=== PATIENT | male | born 1935 | race Caucasian/White ===

== ENCOUNTER 2022-11-11 12:54 | Inpatient (IN) ==
--- NOTE | 2022-11-11 15:08 | Ultrasound Report ---
History: Right upper quadrant pain, abnormally thickened and edematous gallbladder wall seen on preceding CT scan FINDINGS: The liver is normal in size and homogeneous. Doppler shows normal blood flow in the hepatic and portal veins. The gallbladder wall is irregular in contour and abnormally thickened. There is edema in the wall. The wall measures up to 8.7 mm. There is a moderate amount sludge layering posteriorly within the lumen and there may be a few small noncalcified stones. No surrounding free fluid is present. The patient was nontender while scanning over the gallbladder. The common bile duct was largely obscured but the visualized segments are normal in caliber measuring 3 mm. The cystic duct is dilated measures 9 mm. These findings correlate well with the CT scan done earlier on the same date. Visualized portions of the pancreas are normal without evidence of inflammation. IMPRESSION: Abnormally thickened gallbladder wall with sludge and possible stones within the lumen. Although the patient was not particularly tender, this is most likely due to cholecystitis.. Interpreted and Authenticated by: Lj Zaidi 11/11/22
[2022-11-11 15:13] LABS: Eosinophils % (Auto) 2.9 % (0.0-7.0); Hematocrit 40.4 % (40.1-51.0); Hemoglobin 13.4 g/dL (13.7-17.5); Lymphocytes # (Auto) 1.23 K/mcL (1.50-4.80); Lymphocytes % (Auto) 11.8 % (15.5-49.0); Mean Cell Volume 89.6 fL (80.0-100.0); Mean Corpuscular HGB Conc 33.2 g/dL (31.0-36.0); Monocytes # (Auto) 1.15 K/mcL (0.10-0.90); Neutrophils % (Auto) 68.1 % (38.0-78.0); Platelet Count 325 K/mcL (140-440); RBC 4.51 M/mcL (4.63-6.08); WBC 10.4 K/mcL (4.5-11.0)
[2022-11-11 15:33] LABS: ALT/SGPT 33 U/L (<40); AST/SGOT 26 U/L (<40); Albumin/Globulin Ratio 0.8 (1.0-2.3); Alkaline Phosphatase 278 U/L (39-117); Bilirubin,Total 0.2 mg/dL (0.1-1.0); Blood Urea Nitrogen 37 mg/dL (8-23); Carbon Dioxide 21 mmol/L (22-30); Chloride 99 mmol/L (96-108); Globulin 3.6 gm/dL (2.2-3.7); Glomerular Filtration Rate 49; Glucose 164 mg/dL (70-105)
--- NOTE | 2022-11-11 15:49 | Emergency Department Note ---
Abdominal Pain HPI General Chief Complaint: Abdominal Pain Stated Complaint: gallbladder issue Time Seen by Provider: 11/11/22 13:13 Source: patient Mode of arrival: ambulatory Limitations: no limitations History of Present Illness HPI Narrative: 87-year-old male with history of CKD, BPH, COPD, T2DM, hypertension, hyperlipidemia, hypothyroidism, history of lung cancer status post partial lobectomy presents to the ER from his primary care provider's office after a CT scan of his abdomen pelvis showed acute cholecystitis. Patient was seen by me last week for dizziness and ruled out for neurological causes. His daughter is with him today and states that on Friday he started having some chills and sweats, and seemed to be getting weaker. He denies nausea or vomiting, melena or hematochezia. He was seen by his PCP on Friday who noted some mild right upper quadrant pain at which point a CT scan was ordered as an outpatient today. Liver enzymes on 11/03 are within normal limits. No previous abdominal surgeries. Related Data Home Medications Medication Instructions Recorded Confirmed aspirin 81 mg tablet,delayed 81 mg PO QDAY 03/07/15 11/07/22 release cyanocobalamin (vitamin B-12) 1,000 mcg PO QDAY 01/05/20 11/07/22 1,000 mcg tablet metoprolol succinate 50 mg 50 mg PO QDAY 10/24/21 11/07/22 tablet,extended release 24 hr tiotropium bromide 18 mcg capsule inhalation 10/24/21 11/07/22 with inhalation device (Spiriva with HandiHaler) ferrous sulfate 325 mg (65 mg 325 mg PO BID 11/02/21 11/07/22 iron) tablet (Feosol) amlodipine 10 mg tablet 5 mg PO DAILY 07/03/22 11/07/22 trospium 20 mg tablet 20 mg PO BID 07/03/22 11/07/22 albuterol sulfate 90 mcg/actuation 3 puff inhalation QID PRN Dyspnea 11/03/22 11/07/22 aerosol inhaler cholecalciferol (vitamin D3) 100 2,000 unit PO QDAY 11/03/22 11/07/22 mcg (4,000 unit) capsule tolterodine 4 mg capsule,extended 4 mg PO QDAY 11/03/22 11/07/22 release 24 hr triamcinolone acetonide 0.5 % 1 dose topical BID 11/03/22 11/07/22 topical cream Previous Rx's Medication Instructions Recorded nitroglycerin 0.4 mg sublingual 0.4 mg sublingual Q5-15M PRN chest 04/08/19 tablet (Nitrostat) pain #10 tabs blood-glucose meter (Blood Glucose #1 ea 10/21/19 Monitoring kit) tiotropium bromide 18 mcg capsule See Dose Instructions inhalation 10/28/19 with inhalation device QDAY #90 puffs lancets (Accu-Chek Softclix #150 ea 12/07/19 Lancets) blood sugar diagnostic (Accu-Chek #90 ea 12/08/19 Brunilda Plus test strips) diaper,brief,adult,disposable #76 ea 05/25/20 (Depend Underwear For Men Small-Medium) atorvastatin 10 mg tablet (Lipitor) 10 mg PO QHS #90 tabs 06/09/20 glimepiride 2 mg tablet 2 mg PO QDAY #90 tabs 08/01/20 losartan 50 mg tablet (Cozaar) 50 mg PO BID #180 tabs 08/01/20 tamsulosin 0.4 mg capsule 0.4 mg PO QDAY #30 caps 11/20/20 alogliptin 12.5 mg tablet 12.5 mg PO QAM #90 tabs 11/29/20 gemfibrozil 600 mg tablet (Lopid) 600 mg PO BID #180 tabs 11/29/20 empagliflozin 10 mg tablet 10 mg PO QDAY #90 tabs 05/04/21 (Jardiance) loperamide 2 mg capsule 2 mg PO Q4H PRN loose stool #60 05/17/22 caps levothyroxine 175 mcg tablet 175 mcg PO QDAY #90 tabs 07/26/22 metformin 850 mg tablet 850 mg PO TID #270 tabs 09/25/22 Allergies Allergy/AdvReac Type Severity Reaction Status Date / Time No Known Drug Allergies Allergy Verified 11/11/22 13:03 Review of Systems ROS ROS Narrative: Narrative: All systems ED: reviewed and negative except as stated. [facility] Narrative Patient History Narrative: Narrative: Medical/Surgical/Family History All Active Problems (Updated 11/11/22 @ 16:38 by Varsha De Leon PA-C) Acute cholecystitis (Acute) Acute cholecystitis (Acute) Constipation (Acute) Abdominal pain (Acute) Atypical chest pain (Acute) Pulmonary nodule (Acute) Weakness (Acute) Dizziness (Acute) Fall (Acute) Small intestinal bacterial overgrowth (SIBO) (Acute) Diarrhea (Acute) Dehydration (Acute) Acute renal insufficiency (Acute) Chronic diarrhea (Acute) Poor balance (Acute) Laceration of right hand (Acute) Laceration of hand, left (Acute) Squamous cell carcinoma of left lung (Acute) Lung crackles (Acute) Annual physical exam (Acute) Prostate nodule (Acute) Medicare annual wellness visit, subsequent (Acute) Bladder cancer (Acute) OAB (overactive bladder) (Acute) BPH w urinary obs/LUTS (Acute) BPPV (benign paroxysmal positional vertigo) (Acute) Cognitive decline (Acute) Contact dermatitis (Acute) Vitamin D deficiency (Chronic) B12 deficiency (Chronic) Hypothyroidism (Chronic) Laceration of thumb (Chronic) COPD exacerbation (Acute) History of skin cancer (Acute) History of umbilical hernia repair (Acute) History of colonoscopy (Acute 06/28/16) Melanoma of skin (Acute) Psoriasis (Acute) Palpitations (Acute) Hypothyroidism, acquired (Acute) Hyperlipemia (Chronic) Gout (Acute) Diabetes mellitus, type II (Chronic) Benign neoplasm of colon (Acute) Chronic obstructive pulmonary disease (Chronic) Bladder neck obstruction (Acute) Medical History Annual physical exam Benign neoplasm of colon Bladder neck obstruction BPPV (benign paroxysmal positional vertigo) Chronic obstructive pulmonary disease Cognitive decline COPD exacerbation Diabetes mellitus, type II Gout History of skin cancer Hyperlipemia Hypothyroidism Hypothyroidism, acquired Laceration of thumb Lung crackles Medicare annual wellness visit, subsequent Melanoma of skin Palpitations Prostate nodule Psoriasis Squamous cell carcinoma of left lung Surgical History History of colonoscopy (06/28/16) 05/31/13 Tubular Adenoma History of photovaporization of prostate History of umbilical hernia repair Family History Father Asthma Malignant neoplasm of colon at 70 Osteoarthritis Sister Hyperlipidemia Mother , at 30y unknown type Malignant neoplasm Unknown Disorder of thyroid Social History Smoking Status: Former smoker Alcohol Intake Frequency: holiday/special occasion only Substance Use: does not use Exam Narrative Narrative: General: AOx3, NAD, nontoxic appearing. Pleasant and conversant. HEENT: PERRL, EOMI, normocephalic. Moist mucous membranes. Normal facies Respiratory: Lungs clear to auscultation bilaterally. No respiratory distress. Unlabored breathing. Heart: Regular rate and rhythm, no murmurs/clicks/rubs. Abdomen: Mild right upper quadrant discomfort, negative Overton's rebound tenderness, negative McBurney's rebound tenderness,, Non distended, No organomegaly. Extremities: Warm and well perfused. No edema. DP 2+ bilaterally. No venous stasis. Neuro: No focal deficits. Cranial nerves II-XII grossly normal. Skin: Warm dry, no rashes or lesions, no cyanosis. Psych: Normal mood and affect Heme/Lymph: No abnormal bruising General Limitations: no limitations Course Course Course Narrative: 87-year-old male presents for acute cholecystitis Reevaluation(s) Reevaluation #1: Obtain repeat CMP, CBC Obtain right upper quadrant ultrasound Reevaluation #2: CBC without leukocytosis or left shift. No transaminitis or elevated total bili, but alkaline phosphatase is elevated at 278 Right upper quadrant ultrasound shows abnormally thickened gallbladder wall with sludge and possible stones within the lumen. Consultations Consultation #1: Dr. Knight has been contacted, and given the patient's symptomology and mild right upper quadrant pain, he would like to admit the patient for acute cholecystitis and surgical intervention. Vital Signs Vital signs: Vital Signs Temperature 97.0 F 11/11/22 12:58 Pulse Rate 105 H 11/11/22 12:58 Respiratory Rate 18 11/11/22 12:58 Blood Pressure 126/76 11/11/22 12:58 Pulse Oximetry (%) 95 11/11/22 12:58 Oxygen Delivery Method Room Air 11/11/22 12:58 Temperature 97.0 F 11/11/22 12:58 Pulse Rate 92 H 11/11/22 14:52 Respiratory Rate 18 11/11/22 12:58 Blood Pressure 104/69 11/11/22 14:52 Pulse Oximetry (%) 91 11/11/22 14:52 Oxygen Delivery Method Room Air 11/11/22 12:58 [facility] Narrative Medical decision making narrative: Acute cholecystitis Dr. Knight, general surgery, has evaluated the patient and plans to admit for acute cholecystitis and surgical intervention. Please see his note for further details and plan of care. Patient is admitted. Lab Data 11/11/22 14:00 11/11/22 14:00 Labs: Lab Results 11/11/22 11/11/22 Range/Units 14:00 14:00 WBC 10.4 (4.5-11.0) K/mcL RBC 4.51 L (4.63-6.08) M/mcL Hgb 13.4 L (13.7-17.5) g/dL Hct 40.4 (40.1-51.0) % MCV 89.6 (80.0-100.0) fL MCH 29.7 (26.0-34.0) pg MCHC 33.2 (31.0-36.0) g/dL RDW 14.0 (11.5-14.5) % Plt Count 325 (140-440) K/mcL MPV 11.0 (8.8-12.5) fL Immature Gran % (Auto) 5.2 H (0.0-0.5) % Neut % (Auto) 68.1 (38.0-78.0) % Lymph % (Auto) 11.8 L (15.5-49.0) % [place] % (Auto) 11.0 (1.0-12.0) % Eos % (Auto) 2.9 (0.0-7.0) % Baso % (Auto) 1.0 (0.0-2.0) % Lymph # (Auto) 1.23 L (1.50-4.80) K/mcL [place] # (Auto) 1.15 H (0.10-0.90) K/mcL Eos # (Auto) 0.30 (0.00-0.70) K/mcL Baso # (Auto) 0.10 (0.00-0.30) K/mcL Immature Gran # 0.54 H (0.00-0.05) K/mcl Absolute Neutrophils 7.09 (1.80-8.00) K/mcL Sodium 133 (133-145) mmol/L Potassium 3.8 (3.3-5.1) mmol/L Chloride 99 (96-108) mmol/L Carbon Dioxide 21 L (22-30) mmol/L Anion Gap 13.0 (8.0-16.0) BUN 37 H (8-23) mg/dL Creatinine 1.3 H (0.7-1.2) mg/dL GFR Calculation 49 Glucose 164 H (70-105) mg/dL Calcium 9.0 (8.6-10.4) mg/dL Total Bilirubin 0.2 (0.1-1.0) mg/dL AST 26 (<40) U/L ALT 33 (<40) U/L Alkaline Phosphatase 278 H (39-117) U/L Total Protein 6.6 (5.9-8.4) gm/dL Albumin 3.0 L (3.2-5.2) gm/dL Globulin 3.6 (2.2-3.7) gm/dL Albumin/Globulin Ratio 0.8 L (1.0-2.3) Discharge Plan Patient/Caregiver Discharge Instructions Pt seen by WEIGHTS AND MEASURES INSPECTOR/PA only: Yes Clinical Impression: Acute cholecystitis Patient Disposition: Xfer As Inpt ([facility]) Follow up with: Frank Graham MD [Primary Care Provider] - Prescriptions: No Action nitroglycerin [Nitrostat] 0.4 mg tablet, sublingual 0.4 mg SUBLINGUAL Q5-15M PRN (Reason: chest pain) Qty: 10 0RF Rx Instructions: until response; do not exceed 3 doses per episode (DME) lancets [Accu-Chek Softclix Lancets] Misc See Rx Instructions .ROUTE .MEDSUPPLY Qty: 150 5RF Rx Instructions: As directed (DME) blood sugar diagnostic [Accu-Chek Brunilda Plus test strp] Strip See Rx Instructions .ROUTE .MEDSUPPLY Qty: 90 5RF Rx Instructions: check blood sugar once daily (DME) Depend Underwear For Men - Misc See Rx Instructions .ROUTE .MEDSUPPLY Qty: 76 5RF Rx Instructions: As directed atorvastatin 10 mg tablet 10 mg tablet 10 mg PO QHS Qty: 90 1RF glimepiride 2 mg tablet 2 mg PO QDAY Qty: 90 1RF losartan [Cozaar] 50 mg tablet 50 mg PO BID Qty: 180 1RF tamsulosin 0.4 mg capsule 0.4 mg PO QDAY Qty: 30 6RF gemfibrozil [Lopid] 600 mg tablet 600 mg PO BID Qty: 180 1RF alogliptin 12.5 mg tablet 12.5 mg PO QAM Qty: 90 1RF Jardiance 10 mg tablet 10 mg PO QDAY Qty: 90 1RF levothyroxine 175 mcg tablet 175 mcg PO QDAY Qty: 90 1RF metformin 850 mg tablet 850 mg PO TID Qty: 270 3RF Patient Comments: for 90 days Rx Instructions: Going back to TID dosing aspirin 81 mg tablet,delayed release (DR/EC) 81 mg PO QDAY cyanocobalamin (vitamin B-12) 1,000 mcg tablet 1,000 mcg PO QDAY (DME) blood-glucose meter [Blood Glucose Monitoring] Kit See Rx Instructions .ROUTE .MEDSUPPLY Qty: 1 0RF Rx Instructions: Use to test BG QD - BID tiotropium bromide 18 mcg capsule, w/inhalation device See Dose Instructions INHALATION QDAY Qty: 90 2RF Dose Instruction: 1 cap (18 mcg) INHALATION QDAY Patient Comments: for 90 days Rx Instructions: 1 cap (18 mcg) INHALATION QDAY ferrous sulfate [Feosol] 325 mg (65 mg iron) tablet 325 mg PO BID trospium 20 mg tablet 20 mg PO BID amlodipine 10 mg tablet 5 mg PO DAILY Spiriva with HandiHaler 18 mcg capsule, w/inhalation device INHALATION metoprolol succinate 50 mg tablet extended release 24 hr 50 mg PO QDAY Patient Comments: for 90 days loperamide 2 mg capsule 2 mg PO Q4H PRN (Reason: loose stool) Qty: 60 0RF Rx Instructions: administer after each loose stool until symptoms controlled; do not exceed 8 mg per 24 hrs triamcinolone acetonide 1 DOSE cream 1 dose topical BID Rx Instructions: use twice per day for rash albuterol sulfate 90 mcg/actuation HFA aerosol inhaler 3 puff INHALATION QID PRN (Reason: Dyspnea) Rx Instructions: administer with spacer cholecalciferol (vitamin D3) 4,000 unit capsule 2,000 unit PO QDAY tolterodine 4 mg Capsule,Extended Release 24hr 4 mg PO QDAY
[2022-11-11] MEDS ORDERED: ACETAMINOPHEN 325 MG TABLET PO PRN (16:13)
[2022-11-11] MEDS ORDERED: ONDANSETRON 4 MG/2 ML VIAL IV PRN (16:13)
--- NOTE | 2022-11-11 16:25 | General Surg History&Physical ---
HPI History of Present Illness Patient information: Note initiated : 11/11/22 at 4:11 pm Service Date, if different from initiated Date: [] Patient: Kehinde Cullen a 87 y/o M admitted on for gallbladder issue. Chief Complaint: [] Chief complaint: Abdominal pain History of present illness: Mr. Cullen is a 87 year old M who presents with approximately 2-week history of intermittent epigastric and right upper quadrant abdominal pain. He got a lot worse over the last several days, he was seen by his primary care physician ordered CT scan which is read as acute cholecystitis. He was contacted by his primary care physician and told to go to the emergency room. I was asked to see the patient secondary to acute cholecystitis. Patient reports that pains been going on for the last 1 to 2 weeks worse over the last few days, more pain today and subjective fevers on Friday. Review of Systems Review of systems: All systems are reviewed, negative other than above. PFSH PFSH All Active Problems Acute cholecystitis (Acute) Constipation (Acute) Abdominal pain (Acute) Atypical chest pain (Acute) Pulmonary nodule (Acute) Weakness (Acute) Dizziness (Acute) Fall (Acute) Small intestinal bacterial overgrowth (SIBO) (Acute) Diarrhea (Acute) Dehydration (Acute) Acute renal insufficiency (Acute) Chronic diarrhea (Acute) Poor balance (Acute) Laceration of right hand (Acute) Laceration of hand, left (Acute) Squamous cell carcinoma of left lung (Acute) Lung crackles (Acute) Annual physical exam (Acute) Prostate nodule (Acute) Medicare annual wellness visit, subsequent (Acute) Bladder cancer (Acute) OAB (overactive bladder) (Acute) BPH w urinary obs/LUTS (Acute) BPPV (benign paroxysmal positional vertigo) (Acute) Cognitive decline (Acute) Contact dermatitis (Acute) Vitamin D deficiency (Chronic) B12 deficiency (Chronic) Hypothyroidism (Chronic) Laceration of thumb (Chronic) COPD exacerbation (Acute) History of skin cancer (Acute) History of umbilical hernia repair (Acute) History of colonoscopy (Acute 06/28/16) Melanoma of skin (Acute) Psoriasis (Acute) Palpitations (Acute) Hypothyroidism, acquired (Acute) Hyperlipemia (Chronic) Gout (Acute) Diabetes mellitus, type II (Chronic) Benign neoplasm of colon (Acute) Chronic obstructive pulmonary disease (Chronic) Bladder neck obstruction (Acute) Medical History Annual physical exam Benign neoplasm of colon Bladder neck obstruction BPPV (benign paroxysmal positional vertigo) Chronic obstructive pulmonary disease Cognitive decline COPD exacerbation Diabetes mellitus, type II Gout History of skin cancer Hyperlipemia Hypothyroidism Hypothyroidism, acquired Laceration of thumb Lung crackles Medicare annual wellness visit, subsequent Melanoma of skin Palpitations Prostate nodule Psoriasis Squamous cell carcinoma of left lung Surgical History History of colonoscopy (06/28/16) 05/31/13 Tubular Adenoma History of photovaporization of prostate History of umbilical hernia repair Family History Father Asthma Malignant neoplasm of colon at 70 Osteoarthritis Sister Hyperlipidemia Mother , at 30y unknown type Malignant neoplasm Unknown Disorder of thyroid Social History marital status: education level: high school 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: 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 other: 4 children/12 gc smoking status: Former smoker alcohol intake frequency: holiday/special occasion only substance use type: does not use MEDS/ALLERGIES Home Medications and Allergies Home Medications Medication Instructions Recorded Confirmed Type aspirin 81 mg tablet,delayed 81 mg PO QDAY 03/07/15 11/07/22 History release nitroglycerin 0.4 mg sublingual 0.4 mg sublingual Q5-15M PRN chest 04/08/19 11/07/22 Rx tablet (Nitrostat) pain #10 tabs blood-glucose meter (Blood Glucose #1 ea 10/21/19 11/07/22 Rx Monitoring kit) tiotropium bromide 18 mcg capsule See Dose Instructions inhalation 10/28/19 11/07/22 Rx with inhalation device QDAY #90 puffs lancets (Accu-Chek Softclix #150 ea 12/07/19 11/07/22 Rx Lancets) blood sugar diagnostic (Accu-Chek #90 ea 12/08/19 11/07/22 Rx Brunilda Plus test strips) cyanocobalamin (vitamin B-12) 1,000 mcg PO QDAY 01/05/20 11/07/22 History 1,000 mcg tablet diaper,brief,adult,disposable #76 ea 05/25/20 11/07/22 Rx (Depend Underwear For Men Small-Medium) atorvastatin 10 mg tablet (Lipitor) 10 mg PO QHS #90 tabs 06/09/20 11/07/22 Rx glimepiride 2 mg tablet 2 mg PO QDAY #90 tabs 08/01/20 11/07/22 Rx losartan 50 mg tablet (Cozaar) 50 mg PO BID #180 tabs 08/01/20 11/07/22 Rx tamsulosin 0.4 mg capsule 0.4 mg PO QDAY #30 caps 11/20/20 11/07/22 Rx alogliptin 12.5 mg tablet 12.5 mg PO QAM #90 tabs 11/29/20 11/07/22 Rx gemfibrozil 600 mg tablet (Lopid) 600 mg PO BID #180 tabs 11/29/20 11/07/22 Rx empagliflozin 10 mg tablet 10 mg PO QDAY #90 tabs 05/04/21 11/07/22 Rx (Jardiance) metoprolol succinate 50 mg 50 mg PO QDAY 10/24/21 11/07/22 History tablet,extended release 24 hr tiotropium bromide 18 mcg capsule inhalation 10/24/21 11/07/22 History with inhalation device (Spiriva with HandiHaler) ferrous sulfate 325 mg (65 mg 325 mg PO BID 11/02/21 11/07/22 History iron) tablet (Feosol) loperamide 2 mg capsule 2 mg PO Q4H PRN loose stool #60 05/17/22 11/07/22 Rx caps amlodipine 10 mg tablet 5 mg PO DAILY 07/03/22 11/07/22 History trospium 20 mg tablet 20 mg PO BID 07/03/22 11/07/22 History levothyroxine 175 mcg tablet 175 mcg PO QDAY #90 tabs 07/26/22 11/07/22 Rx metformin 850 mg tablet 850 mg PO TID #270 tabs 09/25/22 11/07/22 Rx albuterol sulfate 90 mcg/actuation 3 puff inhalation QID PRN Dyspnea 11/03/22 11/07/22 History aerosol inhaler cholecalciferol (vitamin D3) 100 2,000 unit PO QDAY 11/03/22 11/07/22 History mcg (4,000 unit) capsule tolterodine 4 mg capsule,extended 4 mg PO QDAY 11/03/22 11/07/22 History release 24 hr triamcinolone acetonide 0.5 % 1 dose topical BID 11/03/22 11/07/22 History topical cream Allergies Allergy/AdvReac Type Severity Reaction Status Date / Time No Known Drug Allergies Allergy Verified 11/11/22 13:03 Physical Examination Vital Signs Vital signs: Temp Pulse Resp BP Pulse Ox O2 Del Method 97.0 F 92 H 18 104/69 91 Room Air 11/11/22 12:58 11/11/22 14:52 11/11/22 12:58 11/11/22 14:52 11/11/22 14:52 11/11/22 12:58 General physical appearance General physical exam: well developed, well nourished and no distress Eyes Eye exam: PERRL and normal ocular movement ENT ENT exam: normal pinna, normal nares, normal mucosa, no hearing loss and no congestion Head Head exam IM: Present atraumatic and normocephalic Neck Neck exam: no masses, no bruits, trachea midline, no lymphadenopathy and no venous distension Cardiovascular Cardiovascular exam IM: Present normal rate and rhythm Respiratory Respiratory exam: normal expansion, normal respiratory effort, clear to percussion and clear to auscultation Abdomen Abdomen: Present soft, tender (Tender to palpation in the right upper quadrant, positive Overton sign) and bowel sounds Hernia: Present none Genitourinary Genitourinary (Male): Present normal penis with no external lesions Rectum Rectum: Present normal sphincter tone, no hemorrhoids, no tenderness, no masses and no bleeding Integumentary Integumentary: Present no rash, no growths and no abnormal pigmentation Neurologic Neurologic: Present normal coordination and normal sensation Musculoskeletal Musculoskeletal: Present normal gait and normal posture Psychiatric Psychiatric: Present oriented to time, oriented to person, oriented to place, speech is normal and memory intact Results Labs 11/11/22 14:00 11/11/22 14:00 Labs: Abnormal lab results 11/11/22 11/11/22 Range/Units 14:00 14:00 RBC 4.51 L (4.63-6.08) M/mcL Hgb 13.4 L (13.7-17.5) g/dL Immature Gran % (Auto) 5.2 H (0.0-0.5) % Lymph % (Auto) 11.8 L (15.5-49.0) % Lymph # (Auto) 1.23 L (1.50-4.80) K/mcL [place] # (Auto) 1.15 H (0.10-0.90) K/mcL Immature Gran # 0.54 H (0.00-0.05) K/mcl Carbon Dioxide 21 L (22-30) mmol/L BUN 37 H (8-23) mg/dL Creatinine 1.3 H (0.7-1.2) mg/dL Glucose 164 H (70-105) mg/dL Alkaline Phosphatase 278 H (39-117) U/L Albumin 3.0 L (3.2-5.2) gm/dL Albumin/Globulin Ratio 0.8 L (1.0-2.3) Diabetes panel 11/11/22 Range/Units 14:00 Sodium 133 (133-145) mmol/L Potassium 3.8 (3.3-5.1) mmol/L Chloride 99 (96-108) mmol/L Carbon Dioxide 21 L (22-30) mmol/L BUN 37 H (8-23) mg/dL Creatinine 1.3 H (0.7-1.2) mg/dL Glucose 164 H (70-105) mg/dL Calcium 9.0 (8.6-10.4) mg/dL AST 26 (<40) U/L ALT 33 (<40) U/L Alkaline Phosphatase 278 H (39-117) U/L Total Protein 6.6 (5.9-8.4) gm/dL Albumin 3.0 L (3.2-5.2) gm/dL Calcium panel 11/11/22 Range/Units 14:00 Calcium 9.0 (8.6-10.4) mg/dL Albumin 3.0 L (3.2-5.2) gm/dL Pituitary panel 11/11/22 Range/Units 14:00 Sodium 133 (133-145) mmol/L Potassium 3.8 (3.3-5.1) mmol/L Chloride 99 (96-108) mmol/L Carbon Dioxide 21 L (22-30) mmol/L BUN 37 H (8-23) mg/dL Creatinine 1.3 H (0.7-1.2) mg/dL Glucose 164 H (70-105) mg/dL Calcium 9.0 (8.6-10.4) mg/dL Adrenal panel 11/11/22 Range/Units 14:00 Sodium 133 (133-145) mmol/L Potassium 3.8 (3.3-5.1) mmol/L Chloride 99 (96-108) mmol/L Carbon Dioxide 21 L (22-30) mmol/L BUN 37 H (8-23) mg/dL Creatinine 1.3 H (0.7-1.2) mg/dL Glucose 164 H (70-105) mg/dL Calcium 9.0 (8.6-10.4) mg/dL Total Bilirubin 0.2 (0.1-1.0) mg/dL AST 26 (<40) U/L ALT 33 (<40) U/L Alkaline Phosphatase 278 H (39-117) U/L Total Protein 6.6 (5.9-8.4) gm/dL Albumin 3.0 L (3.2-5.2) gm/dL All other labs normal. Imaging CT scan - abdomen: image reviewed US - abdomen: report reviewed A/P Assessment and plan (1) Acute cholecystitis: Plan: This is a pleasant 87-year-old gentleman who presents with signs and symptoms consistent with acute on chronic cholecystitis. Patient is tender at this time and worrisome for rebound as an outpatient. Long discussion with patient and his family about options including admission versus attempted outpatient management. They will verbalize understanding, all of their questions were answered and they desire to continue with admission with cholecystectomy at earliest convenience. Status: Acute Time Spent With Patient Time: Total time spent is greater than 50% in coordination of care (as documented) at patient's floor/unit and/or counseling patient:
--- NOTE | 2022-11-11 16:51 | Internal Medicine Consult Note ---
HPI Date of Consult Consult Date: 11/11/22 Requesting physician: Kamron Knight Primary Care Provider: Frank Graham MD Consult Narrative Patient Information: Note initiated : 11/11/22 at 4:40 pm Service Date, if different from initiated Date: [] Patient: Kehinde Cullen 87 y/o M admitted on for gallbladder issue. Chief Complaint: [] cc:: CC: Patient is a 87-year-old gentleman history of squamous cell carcinoma of the left lung, bladder cancer, type 2 diabetes mellitus, COPD, essential hypertension, dyslipidemia, hypothyroidism, BPH, presenting with chief complaint of abdominal pain. CT of the abdomen and pelvis as well as ultrasound of the abdomen showing acute cholecystitis with possible cholelithiasis. General surgeons Dr. Knight consulted for surgical management with possible cholecystectomy on Friday. I was asked to comanage the concurrent medical issues. Constitutional Constitutional: Absent chills, excessive sweating, fatigue, fever(s) or weakness EENT Eyes: Absent blurry vision, change in vision, loss of vision or other visual disturbances Ears: Absent decreased hearing or tinnitus Nose, mouth and throat: Absent abnormal hearing, dry mouth, headache(s), nasal congestion or sore throat Cardiovascular Cardiovascular: Absent chest pain, chest pain at rest, edema, irregular heart rhythm or palpatations Respiratory Respiratory: Absent cough, dyspnea or wheezing Gastrointestinal Gastrointestinal: Present abdominal pain; Absent constipation, diarrhea, nausea or vomiting Musculoskeletal Musculoskeletal: Absent back pain, deformity, limited range of motion, muscle cramps, muscle weakness or numbness Integumentary Integumentary: Absent lesions, rash or wounds Neurological Neurological: Absent focal weakness, headache(s) or numbness Psychiatric Psychiatric: Absent anxiety, depression or hallucinations PFSH PFSH All Active Problems (Updated 11/11/22 @ 16:46 by Farhad Mustafa MD) Essential hypertension (Acute) Acute cholecystitis (Acute) Acute cholecystitis (Acute) Constipation (Acute) Abdominal pain (Acute) Atypical chest pain (Acute) Pulmonary nodule (Acute) Weakness (Acute) Dizziness (Acute) Fall (Acute) Small intestinal bacterial overgrowth (SIBO) (Acute) Diarrhea (Acute) Dehydration (Acute) Acute renal insufficiency (Acute) Chronic diarrhea (Acute) Poor balance (Acute) Laceration of right hand (Acute) Laceration of hand, left (Acute) Squamous cell carcinoma of left lung (Acute) Lung crackles (Acute) Annual physical exam (Acute) Prostate nodule (Acute) Medicare annual wellness visit, subsequent (Acute) Bladder cancer (Acute) OAB (overactive bladder) (Acute) BPH w urinary obs/LUTS (Acute) BPPV (benign paroxysmal positional vertigo) (Acute) Cognitive decline (Acute) Contact dermatitis (Acute) Vitamin D deficiency (Chronic) B12 deficiency (Chronic) Hypothyroidism (Chronic) Laceration of thumb (Chronic) COPD exacerbation (Acute) History of skin cancer (Acute) History of umbilical hernia repair (Acute) History of colonoscopy (Acute 06/28/16) Melanoma of skin (Acute) Psoriasis (Acute) Palpitations (Acute) Hypothyroidism, acquired (Acute) Hyperlipemia (Chronic) Gout (Acute) Diabetes mellitus, type II (Chronic) Benign neoplasm of colon (Acute) Chronic obstructive pulmonary disease (Chronic) Bladder neck obstruction (Acute) Medical History Annual physical exam Benign neoplasm of colon Bladder neck obstruction BPPV (benign paroxysmal positional vertigo) Chronic obstructive pulmonary disease Cognitive decline COPD exacerbation Diabetes mellitus, type II Gout History of skin cancer Hyperlipemia Hypothyroidism Hypothyroidism, acquired Laceration of thumb Lung crackles Medicare annual wellness visit, subsequent Melanoma of skin Palpitations Prostate nodule Psoriasis Squamous cell carcinoma of left lung Surgical History History of colonoscopy (06/28/16) 05/31/13 Tubular Adenoma History of photovaporization of prostate History of umbilical hernia repair Family History Father Asthma Malignant neoplasm of colon at 70 Osteoarthritis Sister Hyperlipidemia Mother , at 30y unknown type Malignant neoplasm Unknown Disorder of thyroid Social History marital status: education level: high school 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: 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 other: 4 children/12 gc smoking status: Former smoker alcohol intake frequency: holiday/special occasion only substance use type: does not use MEDS/ALLERGIES Home Medications and Allergies Home Medications Medication Instructions Recorded Confirmed Type aspirin 81 mg tablet,delayed 81 mg PO QDAY 03/07/15 11/07/22 History release nitroglycerin 0.4 mg sublingual 0.4 mg sublingual Q5-15M PRN chest 04/08/19 11/07/22 Rx tablet (Nitrostat) pain #10 tabs blood-glucose meter (Blood Glucose #1 ea 10/21/19 11/07/22 Rx Monitoring kit) tiotropium bromide 18 mcg capsule See Dose Instructions inhalation 10/28/19 11/07/22 Rx with inhalation device QDAY #90 puffs lancets (Accu-Chek Softclix #150 ea 12/07/19 11/07/22 Rx Lancets) blood sugar diagnostic (Accu-Chek #90 ea 12/08/19 11/07/22 Rx Brunilda Plus test strips) cyanocobalamin (vitamin B-12) 1,000 mcg PO QDAY 01/05/20 11/07/22 History 1,000 mcg tablet diaper,brief,adult,disposable #76 ea 05/25/20 11/07/22 Rx (Depend Underwear For Men Small-Medium) atorvastatin 10 mg tablet (Lipitor) 10 mg PO QHS #90 tabs 06/09/20 11/07/22 Rx glimepiride 2 mg tablet 2 mg PO QDAY #90 tabs 08/01/20 11/07/22 Rx losartan 50 mg tablet (Cozaar) 50 mg PO BID #180 tabs 08/01/20 11/07/22 Rx tamsulosin 0.4 mg capsule 0.4 mg PO QDAY #30 caps 11/20/20 11/07/22 Rx alogliptin 12.5 mg tablet 12.5 mg PO QAM #90 tabs 11/29/20 11/07/22 Rx gemfibrozil 600 mg tablet (Lopid) 600 mg PO BID #180 tabs 11/29/20 11/07/22 Rx empagliflozin 10 mg tablet 10 mg PO QDAY #90 tabs 05/04/21 11/07/22 Rx (Jardiance) metoprolol succinate 50 mg 50 mg PO QDAY 10/24/21 11/07/22 History tablet,extended release 24 hr tiotropium bromide 18 mcg capsule inhalation 10/24/21 11/07/22 History with inhalation device (Spiriva with HandiHaler) ferrous sulfate 325 mg (65 mg 325 mg PO BID 11/02/21 11/07/22 History iron) tablet (Feosol) loperamide 2 mg capsule 2 mg PO Q4H PRN loose stool #60 05/17/22 11/07/22 Rx caps amlodipine 10 mg tablet 5 mg PO DAILY 07/03/22 11/07/22 History trospium 20 mg tablet 20 mg PO BID 07/03/22 11/07/22 History levothyroxine 175 mcg tablet 175 mcg PO QDAY #90 tabs 07/26/22 11/07/22 Rx metformin 850 mg tablet 850 mg PO TID #270 tabs 09/25/22 11/07/22 Rx albuterol sulfate 90 mcg/actuation 3 puff inhalation QID PRN Dyspnea 11/03/22 11/07/22 History aerosol inhaler cholecalciferol (vitamin D3) 100 2,000 unit PO QDAY 11/03/22 11/07/22 History mcg (4,000 unit) capsule tolterodine 4 mg capsule,extended 4 mg PO QDAY 11/03/22 11/07/22 History release 24 hr triamcinolone acetonide 0.5 % 1 dose topical BID 11/03/22 11/07/22 History topical cream Allergies Allergy/AdvReac Type Severity Reaction Status Date / Time No Known Drug Allergies Allergy Verified 11/11/22 13:03 EXAM Constitutional Vitals: Temp Pulse Resp BP Pulse Ox O2 Del Method 36.1 C 92 H 18 104/69 91 Room Air 11/11/22 12:58 11/11/22 14:52 11/11/22 12:58 11/11/22 14:52 11/11/22 14:52 11/11/22 12:58 General appearance: cooperative and no acute distress Head Head exam: Present atraumatic and normocephalic Eye Eye exam: Present EOMI and PERRL ENT ENT exam: Present mucous membranes moist, normal exam and normal external ear exam Neck Neck exam: Present normal inspection; Absent lymphadenopathy, tenderness or thyromegaly Respiratory Respiratory exam: Absent accessory muscle use, respiratory distress or wheezes Cardiovascular Cardiovascular exam: Present normal rate and rhythm; Absent JVD GI/Abdominal GI/Abdominal exam: Present normal bowel sounds, soft and tenderness; Absent organomegaly Rectal Rectal exam: Present deferred Extremities Exam Extremities exam: Present full ROM, normal capillary refill and normal inspection; Absent tenderness Neurological Exam Neurological exam: Present alert, CN II-XII intact and oriented X3; Absent motor sensory deficit Psychiatric Psychiatric exam: Present normal affect and normal mood; Absent anxious or depressed Skin Skin exam: Present dry and intact DATA Data Completed and Pending Labs: Labs from last 24 hours 11/11/22 11/11/22 14:00 14:00 WBC 10.4 RBC 4.51 L Hgb 13.4 L Hct 40.4 MCV 89.6 MCH 29.7 MCHC 33.2 RDW 14.0 Plt Count 325 MPV 11.0 Immature Gran % (Auto) 5.2 H Neut % (Auto) 68.1 Lymph % (Auto) 11.8 L [place] % (Auto) 11.0 Eos % (Auto) 2.9 Baso % (Auto) 1.0 Lymph # (Auto) 1.23 L [place] # (Auto) 1.15 H Eos # (Auto) 0.30 Baso # (Auto) 0.10 Immature Gran # 0.54 H Absolute Neutrophils 7.09 Sodium 133 Potassium 3.8 Chloride 99 Carbon Dioxide 21 L Anion Gap 13.0 BUN 37 H Creatinine 1.3 H GFR Calculation 49 Glucose 164 H Calcium 9.0 Total Bilirubin 0.2 AST 26 ALT 33 Alkaline Phosphatase 278 H Total Protein 6.6 Albumin 3.0 L Globulin 3.6 Albumin/Globulin Ratio 0.8 L A/P Assessment and plan (1) Acute cholecystitis: Status: Acute (2) OAB (overactive bladder): Status: Acute (3) BPH w urinary obs/LUTS: Status: Acute (4) Hypothyroidism: Status: Chronic (5) Hypothyroidism, acquired: Status: Acute (6) Hyperlipemia: Status: Chronic (7) Diabetes mellitus, type II: Status: Chronic (8) Chronic obstructive pulmonary disease: Status: Chronic (9) Essential hypertension: Status: Acute Narrative A/P Narrative: Assessment and Plans: 1. Acute cholecystitis with possible cholelithiasis: Surgical management as per primary team Dr. Knight Tentative surgery date on Friday11/13/22 for cholecystectomy, laparoscopic vs open Zosyn D5 1/2NS@75cc/hr Clear liquid diet 2. T2DM: HgA1c Hold oral hypoglycemics Insulin Lispro SSI AC HS Accu Check AC HS Hypoglycemia protocol Clear liquid diet 3. COPD, stable: Currently tolerating room air DuoNEB Spiriva 4. Essential Hypertension: Amlodipine Losartan Metoprolol ER 5. Hyperlipidemia: Gemfibrozil Lipitor 6. Hypothyroidism: Continue thyroid replacement therapy 7. BPH with overactive bladder: Flomax Tolterodine Thank you for the consultation, will continue to follow Time Spent With Patient Time: Total time spent is greater than 50% in coordination of care (as documented) at patient's floor/unit and/or counseling patient:
[2022-11-11] MEDS ORDERED: IPRATROPIUM/ALBUTEROL 3 ML AMPUL.NEB NEB PRN (19:13)
[2022-11-11] MEDS ORDERED: DEXTROSE 31 GM ORAL.SUSP PO PRN (19:13)
[2022-11-11] MEDS ORDERED: DEXTROSE 50% 50 ML VIAL IV PRN (19:13)
[2022-11-11] MEDS: DEXTROSE 5%-1/2NS 1,000 ML IV SCH (19:58)
[2022-11-11] MEDS: PIPERACILLIN SODIUM/TAZOBACTAM 3.375 GM in DEXTROSE 5% IN WATER 50 ML IV SCH ×2 (19:58→23:57)
[2022-11-11] MEDS: INSULIN LISPRO 1 UNIT/0.01 ML UNIT SQ SCH ×2 (20:09→21:11)
[2022-11-12] MEDS: PIPERACILLIN SODIUM/TAZOBACTAM 3.375 GM in DEXTROSE 5% IN WATER 50 ML IV SCH ×3 (05:23→19:57)
[2022-11-12] MEDS: INSULIN LISPRO 1 UNIT/0.01 ML UNIT SQ SCH ×4 (08:02→22:10)
[2022-11-12] MEDS: DEXTROSE 5%-1/2NS 1,000 ML IV SCH ×3 (08:03→22:10)
[2022-11-12] MEDS ORDERED: NITROGLYCERIN 0.4 MG TAB.SUBL SL PRN (14:20)
[2022-11-12] MEDS ORDERED: ALBUTEROL SULFATE 60 PUFF INHALER INH PRN (14:20)
--- NOTE | 2022-11-12 14:29 | Internal Med Progress Note ---
SUBJECTIVE Subjective Patient information: Note initiated : 11/12/22 at 2:26 pm Service Date, if different from initiated Date: [] Patient: Kehinde Cullen 87 y/o M admitted on 11/11/22 for gallbladder issue. Chief Complaint: [] Interval history: Patient is a 87-year-old gentleman history of squamous cell carcinoma of the left lung, bladder cancer, type 2 diabetes mellitus, COPD, essential hypertension, dyslipidemia, hypothyroidism, BPH, presenting with chief complaint of abdominal pain. CT of the abdomen and pelvis as well as ultrasound of the abdomen showing acute cholecystitis with possible cholelithiasis. General surgeons Dr. Knight consulted for surgical management with possible cholecystectomy on Friday. I was asked to comanage the concurrent medical issues. 11/12: Afebrile overnight. All cultures no growth today. Fasting glucose 228. Patient denies any abdominal pain or nausea or vomiting at the moment. Dr. Knight decided to proceed with the surgery today and patient has been n.p.o. since midnight. We will continue antibiotics coverage for the time being as well as sliding scale insulin. Will resume diet after the surgery when okay by Dr. Knight. Constitutional Vitals: Vital Signs Temp Pulse Resp BP Pulse Ox O2 Del Method 36.2 C 60 16 132/75 96 Room Air 11/12/22 11:54 11/12/22 11:54 11/12/22 11:54 11/12/22 11:54 11/12/22 11:54 11/12/22 11:54 Period Temp Pulse Resp BP Sys/Burgos Pulse Ox O2 Del Method O2 Flow Rate Last 24 Hr 36.2 C-36.9 C 41-143 16-20 104-144/59-92 91-96 Room Air-Room Air Intake and Output 11/12/22 11/12/22 11/12/22 03:59 11:59 19:59 Intake Total 660 1050 Output Total 730 150 Balance -70 900 Intake & Output: Intake & Output 11/12/22 11/12/22 11/12/22 03:59 11:59 19:59 Intake Total 660 1050 Output Total 730 150 Balance -70 900 Intake: IV 100 1050 Dextrose 5%-1/2Ns IV Solution 1 1000 ,000 ml @ 75 mls/hr IV .[id number] [facility] Rx#:[id number] Zosyn 3.375 gm In Dextrose 5% 100 50 in Water 50 ml @ 100 mls/hr IV Q6H [facility] Rx#:[id number] Oral 560 Output: Void Amount 725 150 # of times incontinent of urine 5 Other: Urine Appearance Clear Urine Color Yellow Urine Odor Normal # Voids 1 Head Head exam: Present atraumatic and normal inspection Eye Eye exam: Present normal appearance ENT ENT exam: Present mucous membranes moist, normal exam and normal external ear exam Neck Neck exam: Present normal inspection Respiratory Respiratory exam: Present normal respiratory exam Cardiovascular Cardiovascular exam: Present normal rate and rhythm GI/Abdominal GI/Abdominal exam: Present normal bowel sounds Back Exam Back exam: Present normal inspection Neurological Exam Neurological exam: Present alert and oriented X3 Skin Skin exam: Present intact and warm OBJ DATA Labs 11/11/22 14:00 11/11/22 14:00 Labs: Abnormal Lab Results 11/11/22 11/11/22 11/11/22 14:00 14:00 14:00 RBC 4.51 L Hgb 13.4 L Immature Gran % (Auto) 5.2 H Lymph % (Auto) 11.8 L Lymph # (Auto) 1.23 L [place] # (Auto) 1.15 H Immature Gran # 0.54 H Carbon Dioxide 21 L BUN 37 H Creatinine 1.3 H Glucose 164 H Hemoglobin A1c 8.0 H Alkaline Phosphatase 278 H Albumin 3.0 L Albumin/Globulin Ratio 0.8 L Meds: Medications Acetaminophen (Acetaminophen 325 Mg Tablet) 650 mg PO Q6HP PRN; Protocol PRN Reason: Per Pain Protocol/Fever > 101 Albuterol Sulfate (Albuterol Sulfate 60 Puff Inhaler) 3 puff INH QID PRN PRN Reason: Dyspnea Albuterol/Ipratropium (Ipratropium/Albuterol 3 Ml Ampul.Neb) 3 ml NEB Q4HP PRN PRN Reason: Shortness Of Breath Amlodipine Besylate (Amlodipine 10 Mg Tablet) 5 mg PO DAILY [facility] Cyanocobalamin (Cyanocobalamin (Vitamin B-12) 1,000 Mcg Tablet) 1,000 mcg PO QDAY [facility] Dextrose (Dextrose 50% 50 Ml Vial) 0 ml IV UD PRN PRN Reason: Per Sliding Scale Diagnostic Test (Pha) (Accu-Chek 1 Each Strip) 1 each FS ACHS [facility] Last Admin: 11/12/22 11:52 Dose: 1 each Ferrous Sulfate (Ferrous Sulfate 325 Mg Tablet) 325 mg PO BID [facility] Gemfibrozil (Gemfibrozil 600 Mg Tablet) 600 mg PO BID [facility] Glucose (Dextrose 31 Gm Oral.Susp) 15 gm PO PRN PRN PRN Reason: Hypoglycemia Dextrose/Sodium Chloride (Dextrose 5%-1/2ns Iv Solution) 1,000 mls @ 75 mls/hr IV .[id number] [facility] Last Admin: 11/12/22 11:49 Dose: 75 mls/hr Piperacillin Sod/Tazobactam (Sod 3.375 gm/ Dextrose) 50 mls @ 100 mls/hr IV Q6H [facility]; Protocol Last Admin: 11/12/22 11:49 Dose: 100 mls/hr Ibuprofen (Ibuprofen 600 Mg Tablet) 600 mg PO QIDP PRN; Protocol PRN Reason: Per Pain Protocol/Fever > 101 Insulin Human Lispro (Insulin Lispro 1 Unit/0.01 Ml Unit) 0 unit SQ ACHS [facility]; Protocol Last Admin: 11/12/22 11:52 Dose: Not Given Levothyroxine Sodium (Levothyroxine Sodium 175 Mcg Tablet) 175 mcg PO QDAY [facility] Losartan Potassium (Losartan 50 Mg Tablet) 50 mg PO BID [facility] Metoprolol Succinate (Metoprolol Succinate 50 Mg Tab.Xl.24h) 50 mg PO QDAY [facility] Nitroglycerin (Nitroglycerin 0.4 Mg Tab.Subl) 0.4 mg SL Q5-15M PRN PRN Reason: chest pain Non-Formulary Medication (Atorvastatin [Lipitor]) 10 mg PO QHS [facility] Non-Formulary Medication (Cholecalciferol (Vitamin D3)) 2,000 unit PO QDAY [facility] Non-Formulary Medication (Tolterodine) 4 mg PO QDAY [facility] Non-Formulary Medication (Triamcinolone Acetonide) 1 dose topical BID [facility] Non-Formulary Medication (Trospium) 20 mg PO BID [facility] Non-Formulary Medication (Aspirin) 81 mg PO QDAY [facility] Ondansetron HCl (Ondansetron 4 Mg/2 Ml Vial) 4 mg IV Q6HP PRN PRN Reason: Nausea And Vomiting Tamsulosin HCl (Tamsulosin 0.4 Mg Capsule) 0.4 mg PO QDAY [facility] Tiotropium [place] (Tiotropium [place] 18 Mcg Inhalant) mcg INH DAILY [facility] Tiotropium [place] (Tiotropium [place] 18 Mcg Inhalant) mcg INH QDAY [facility] A/P Assessment and plan (1) Acute cholecystitis: Status: Acute (2) OAB (overactive bladder): Status: Acute (3) BPH w urinary obs/LUTS: Status: Acute (4) Hypothyroidism: Status: Chronic (5) Hypothyroidism, acquired: Status: Acute (6) Hyperlipemia: Status: Chronic (7) Diabetes mellitus, type II: Status: Chronic (8) Chronic obstructive pulmonary disease: Status: Chronic (9) Essential hypertension: Status: Acute Narrative A/P Narrative: Assessment and Plans: 1. Acute cholecystitis with possible cholelithiasis: Surgical management as per primary team Dr. Knight Tentative surgery date today for cholecystectomy, laparoscopic vs open Zosyn D5 1/2NS@75cc/hr NPO since midnight in preparation for surgery 2. T2DM: HgA1c 8.0 Hold oral hypoglycemics Insulin Lispro SSI q6 prior to surgery, AC HS when resume diet Accu Check q6 prior to surgery, AC HS when resume diet Hypoglycemia protocol NPO since midnight in preparation for surgery 3. COPD, stable: Currently tolerating room air DuoNEB Spiriva 4. Essential Hypertension: Amlodipine Losartan Metoprolol ER 5. Hyperlipidemia: Gemfibrozil Lipitor 6. Hypothyroidism: Continue thyroid replacement therapy 7. BPH with overactive bladder: Flomax Tolterodine Thank you for the consultation, will continue to follow Time Spent With Patient Time: Total time spent is greater than 50% in coordination of care (as documented) at patient's floor/unit and/or counseling patient: Subsequent: Total time with patient: 35 - 49 minutes QUALITY Stroke Symptom Onset Unknown: No VTE Deep Vein Thrombosis/Pulmonary Embolism Present on Admission: No
[2022-11-12] MEDS ORDERED: PROPOFOL 200 MG/20 ML VIAL IV ONE (16:31)
[2022-11-12] MEDS ORDERED: MIDAZOLAM 2 MG/2 ML VIAL ONE (16:31)
[2022-11-12] MEDS ORDERED: LIDOCAINE HCL/PF 100 MG/5 ML SYRINGE IV ONE (16:31)
[2022-11-12] MEDS ORDERED: SUGAMMADEX SODIUM 200 MG/2 ML VIAL IV ONE (16:31)
[2022-11-12] MEDS ORDERED: ONDANSETRON 4 MG/2 ML VIAL ONE (16:31)
[2022-11-12] MEDS ORDERED: ROCURONIUM 10 MG/ML ML IV ONE (16:31)
[2022-11-12] MEDS ORDERED: fentaNYL 100 MCG/2 ML VIAL IV ONE (16:31)
[2022-11-12] MEDS ORDERED: MEPERIDINE 25 MG/ML VIAL IV PRN (17:16)
[2022-11-12] MEDS ORDERED: IPRATROPIUM/ALBUTEROL 3 ML AMPUL.NEB NEB PRN (17:16)
[2022-11-12] MEDS ORDERED: HYDROmorphone 0.5 MG/0.5 ML SYRINGE IV PRN (17:16)
[2022-11-12] MEDS ORDERED: ONDANSETRON 4 MG/2 ML VIAL IV PRN (17:16)
[2022-11-12] MEDS ORDERED: BUPIVACAINE PF 0.5% 30 ML VIAL IJ ONE (17:17)
[2022-11-12] MEDS ORDERED: LIDOCAINE W/EPI 0.5% 50 ML VIAL IJ ONE (17:17)
--- NOTE | 2022-11-12 18:32 | Operative Note ---
Brief Operative Note Date of procedure: 11/12/22 Pre-op diagnosis: Acute cholecystitis Post-op diagnosis: other (Severe acute on chronic cholecystitis) Procedure: Robotic assisted partial cholecystectomy Grafts/Implants: No Anesthesia: GETA Findings: Severe acute on chronic cholecystitis with pus in the gallbladder Complications: none Surgeon: Kamron Knight Estimated blood loss (cc): 100 Specimens Removed/Pathology: other (Gallbladder and contents) Condition: stable Disposition: PACU Operative Note Operative Note: After risk benefits and alternatives to the procedure were discussed with the patient at length he verbalized understanding and desire to continue with the procedure. Patient was taken main operating room placed upon the operative table. General anesthesia was induced over endotracheal tube. Patient was prepped and draped in the standard sterile surgical fashion. Surgical timeout was taken to verify patient and procedure being performed. 1% lidocaine half percent Marcaine was used for local anesthesia throughout the case. The abdomen was entered under direct vision using a 12 mm Optiview trocar through a right upper quadrant incision. The abdominal cavity was insufflated with carbon oxide and visual inspection revealed no injuries. A 8 mm supraumbilical, a 8 mm left upper quadrant trocar and an additional 8 mm right upper quadrant trocar was placed under direct vision. Patient was placed in a head up right side up position. The da Jarrett robot was docked in the standard fashion attention was turned to the gallbladder, there was severe inflammation in the omentum was densely adherent to the gallbladder, this was carefully taken down with blunt and electrocautery dissection. Once this is done attention was turned to the gallbladder which was densely adherent, I was able to get down to the trauma SHERIDAN however the general SHERIDAN was unable to be safely dissected secondary to the inflammation. The gallbladder was entered just above the infundibulum and a large amount of pus was expressed, at this time I decision was made to do a partial cholecystectomy. The gallbladder was transected approximately 2 to 3 cm above the cystic duct junction, the gallbladder was then removed from the gallbladder fossa using electrocautery. Hemostasis was obtained in the gallbladder fossa with electrocautery. Secondary to the acute on chronic inflammation decision was made to leave Surgicel in the gallbladder fossa. There was also a area along the falciform ligament where the liver was oozy, this was also made hemostatic with electrocautery and then Surgicel was left. The gallbladder fossa and surrounding areas were then copiously irrigated and all irrigant was suctioned free from the abdominal cavity. The gallbladder was removed from the gallbladder fossa using electrocautery this placed in Endo Catch bag removed through the 12mm incision and passed off the field for surgical pathology. Attention was turned back to the gallbladder fossa which was hemostatic. A 19 Green[place] Tom drain was then placed in the gallbladder fossa and brought out through the right lateral trocar site. The 12mm fascial defect was then reapproximated with a interrupted 0 Vicryl suture. CO2 and trochars were removed from the abdominal cavity under direct vision. Trocar sites were inspected for hemostasis. Skin edges were closed with interrupted 4 Monocryl sutures skin glue dressings were applied. Patient was then awakened from anesthesia transported postanesthesia care unit awake alert in good condition.
[2022-11-12] MEDS: fentaNYL 100 MCG/2 ML VIAL IV PRN ×3 (18:59→19:04)
[2022-11-12] MEDS ORDERED: TRIAMCINOLONE ACETONIDE topical SCH (21:00)
[2022-11-12] MEDS: ATORVASTATIN 10 MG TABLET PO SCH (21:07)
[2022-11-12] MEDS: Trospium 20 mg tablet PO SCH (21:07)
[2022-11-12] MEDS: FERROUS SULFATE 325 MG TABLET PO SCH (21:07)
[2022-11-12] MEDS: IBUPROFEN 600 MG TABLET PO PRN (21:07)
[2022-11-12] MEDS: LOSARTAN 50 MG TABLET PO SCH (21:07)
[2022-11-12] MEDS: GEMFIBROZIL 600 MG TABLET PO SCH (21:07)
[2022-11-13] MEDS: PIPERACILLIN SODIUM/TAZOBACTAM 3.375 GM in DEXTROSE 5% IN WATER 50 ML IV SCH ×5 (00:51→23:17)
[2022-11-13 07:36] LABS: Blood Urea Nitrogen 23 mg/dL (8-23); Calcium 8.1 mg/dL (8.6-10.4); Carbon Dioxide 22 mmol/L (22-30); Chloride 101 mmol/L (96-108); Glomerular Filtration Rate 49; Glucose 208 mg/dL (70-105)
[2022-11-13 07:38] LABS: Basophils # (Auto) 0.07 K/mcL (0.00-0.30); Basophils % (Auto) 0.5 % (0.0-2.0); Eosinophils # (Auto) 0.06 K/mcL (0.00-0.70); Eosinophils % (Auto) 0.4 % (0.0-7.0); Hematocrit 34.3 % (40.1-51.0); Hemoglobin 11.1 g/dL (13.7-17.5); Lymphocytes # (Auto) 0.94 K/mcL (1.50-4.80); Lymphocytes % (Auto) 6.9 % (15.5-49.0); Mean Cell Volume 90.7 fL (80.0-100.0); Mean Corpuscular HGB Conc 32.4 g/dL (31.0-36.0); Mean Platelet Volume 10.4 fL (8.8-12.5); Monocytes # (Auto) 1.36 K/mcL (0.10-0.90); Neutrophils % (Auto) 79.8 % (38.0-78.0); Platelet Count 354 K/mcL (140-440); RBC 3.78 M/mcL (4.63-6.08); Red Cell Distribution Width 14.3 % (11.5-14.5); WBC 13.6 K/mcL (4.5-11.0)
[2022-11-13] MEDS: INSULIN LISPRO 1 UNIT/0.01 ML UNIT SQ SCH ×4 (07:46→20:39)
[2022-11-13] MEDS: LEVOTHYROXINE 75 MCG TABLET PO SCH (07:47)
[2022-11-13] MEDS: LEVOTHYROXINE 100 MCG TABLET PO SCH (07:47)
[2022-11-13] MEDS: DEXTROSE 5%-1/2NS 1,000 ML IV SCH ×3 (08:31→22:06)
[2022-11-13] MEDS ORDERED: TOLTERODINE 4 MG PO SCH (09:00)
[2022-11-13] MEDS ORDERED: TIOTROPIUM BROMIDE 18 MCG INHALANT INH SCH (09:00)
[2022-11-13] MEDS: amLODIPine 10 MG TABLET PO SCH (09:23)
[2022-11-13] MEDS: ASPIRIN 81 MG TAB.CHEW PO SCH (09:23)
[2022-11-13] MEDS: CYANOCOBALAMIN (VITAMIN B-12) 500 MCG TABLET PO SCH (09:23)
[2022-11-13] MEDS: METOPROLOL SUCCINATE 50 MG TAB.XL.24H PO SCH (09:24)
[2022-11-13] MEDS: TAMSULOSIN 0.4 MG CAPSULE PO SCH (09:24)
[2022-11-13] MEDS: GEMFIBROZIL 600 MG TABLET PO SCH ×2 (09:25→20:39)
[2022-11-13] MEDS: VITAMIN D3 25 MCG TABLET PO SCH (09:25)
[2022-11-13] MEDS: LOSARTAN 50 MG TABLET PO SCH ×2 (09:25→20:39)
[2022-11-13] MEDS: FERROUS SULFATE 325 MG TABLET PO SCH ×2 (09:25→20:39)
[2022-11-13] MEDS: Trospium 20 mg tablet PO SCH ×2 (09:26→20:44)
--- NOTE | 2022-11-13 10:10 | General Surgery Progress Note ---
SUBJECTIVE Subjective Patient information: Note initiated : 11/13/22 at 10:09 am Service Date, if different from initiated Date: [] Patient: Kehinde Cullen 87 y/o M admitted on 11/11/22 for gallbladder issue. Chief Complaint: [] Interval history: Postop day #1 status post robotic assisted partial cholecystectomy. Patient feels well this morning, is afebrile tolerating clear liquid diet. Constitutional Vitals: Vital Signs Temp Pulse Resp BP Pulse Ox O2 Del Method O2 Flow Rate 96.3 F L 77 20 125/74 94 Nasal Cannula 2 11/13/22 07:57 11/13/22 07:57 11/13/22 07:57 11/13/22 07:57 11/13/22 07:57 11/13/22 07:57 11/13/22 07:57 Period Temp Pulse Resp BP Sys/Burgos Pulse Ox O2 Del Method O2 Flow Rate Last 24 Hr 96.3 F-97.7 F 48-99 11-24 115-159/66-108 79-100 Nasal Cannula- Room Air 2-6 Intake and Output 11/12/22 11/13/22 11/13/22 19:59 03:59 11:59 Intake Total 2350 600 1050 Output Total 150 441 216 Balance 2200 159 834 Weight 207 lb 8 oz Intake & Output: Intake & Output 11/12/22 11/13/22 11/13/22 19:59 03:59 11:59 Intake Total 2350 600 1050 Output Total 150 441 216 Balance 2200 159 834 Weight 207 lb 8 oz Intake: IV 50 100 1050 Dextrose 5%-1/2Ns IV Solution 1 1000 ,000 ml @ 75 mls/hr IV .[id number] [facility] Rx#:[id number] Zosyn 3.375 gm In Dextrose 5% 50 100 50 in Water 50 ml @ 100 mls/hr IV Q6H [facility] Rx#:[id number] Oral 500 IV - Manual Only 2300 Output: Drainage 40 Right Lower Abdomen RENUKA Drain 40 Drainage 50 115 Right Lower Abdomen RENUKA Drain 50 115 Void Amount 325 175 # of times incontinent of urine 1 1 Estimated Blood Loss 100 Other: Urine Appearance Clear Clear Clear Urine Color Yellow Yellow Yellow Urine Odor Normal Normal # Voids 3 1 General appearance: cooperative and no acute distress GI/Abdominal GI/Abdominal exam: Present normal bowel sounds and soft; Absent distended A/P Assessment and plan (1) Acute cholecystitis: Plan: Postop day 1 status post partial cholecystectomy for severe acute on chronic cholecystitis. Patient is doing as expected. Encourage ambulation, advance diet as tolerated. Anticipate discharge in the next 1 to 2 days. Status: Acute Time Spent With Patient Time: Total time spent is greater than 50% in coordination of care (as documented) at patient's floor/unit and/or counseling patient:
[2022-11-13] MEDS: TIOTROPIUM BROMIDE 18 MCG INHALANT INH SCH (11:10)
--- NOTE | 2022-11-13 12:11 | Internal Med Progress Note ---
SUBJECTIVE Subjective Patient information: Note initiated : 11/13/22 at 12:06 pm Service Date, if different from initiated Date: [] Patient: Kehinde Cullen 87 y/o M admitted on 11/11/22 for gallbladder issue. Chief Complaint: [] Interval history: Patient is a 87-year-old gentleman history of squamous cell carcinoma of the left lung, bladder cancer, type 2 diabetes mellitus, COPD, essential hypertension, dyslipidemia, hypothyroidism, BPH, presenting with chief complaint of abdominal pain. CT of the abdomen and pelvis as well as ultrasound of the abdomen showing acute cholecystitis with possible cholelithiasis. General surgeons Dr. Knight consulted for surgical management with possible cholecystectomy on Friday. I was asked to comanage the concurrent medical issues. 11/12: Afebrile overnight. All cultures no growth today. Fasting glucose 228. Patient denies any abdominal pain or nausea or vomiting at the moment. Dr. Knight decided to proceed with the surgery today and patient has been n.p.o. since midnight. We will continue antibiotics coverage for the time being as well as sliding scale insulin. Will resume diet after the surgery when okay by Dr. Knight. 11/13: s/p lap cholecystectomy by Dr. Knight on 11/12. Fasting glucose 305. Blood pressure well controlled. Increase Insulin Lispro SSI from medium to high scale AC HS for better glycemic coverage. Continue oral antihypertensives for blood pressure control. Rest of the post-operative management as per primary team. Constitutional Vitals: Vital Signs Temp Pulse Resp BP Pulse Ox O2 Del Method O2 Flow Rate 35.7 C L 77 20 125/74 94 Nasal Cannula 1 11/13/22 07:57 11/13/22 08:00 11/13/22 08:00 11/13/22 07:57 11/13/22 08:00 11/13/22 08:00 11/13/22 08:00 Period Temp Pulse Resp BP Sys/[place] Pulse Ox O2 Del Method O2 Flow Rate Last 24 Hr 35.7 C-36.5 C 48-99 11-24 115-159/66-108 79-100 Nasal Cannula- Room Air 1-6 Intake and Output 11/13/22 11/13/22 11/13/22 03:59 11:59 19:59 Intake Total 600 1050 Output Total 441 266 Balance 159 784 Weight 94.12 kg Intake & Output: Intake & Output 11/13/22 11/13/22 11/13/22 03:59 11:59 19:59 Intake Total 600 1050 Output Total 441 266 Balance 159 784 Weight 94.12 kg Intake: IV 100 1050 Dextrose 5%-1/2Ns IV Solution 1 1000 ,000 ml @ 75 mls/hr IV .[id number] [facility] Rx#:[id number] Zosyn 3.375 gm In Dextrose 5% 100 50 in Water 50 ml @ 100 mls/hr IV Q6H [facility] Rx#:[id number] Oral 500 Output: Drainage 40 Right Lower Abdomen RENUKA Drain 40 Drainage 115 Right Lower Abdomen RENUKA Drain 115 Void Amount 325 225 # of times incontinent of urine 1 1 Other: Meal Breakfast Percent of Meal Consumed 75% Urine Appearance Clear Clear Urine Color Yellow Yellow Urine Odor Normal Normal # Voids 1 2 ENT Additional comments: Nasal cannula in place GI/Abdominal Additional comments: RENUKA drain right upper quadrants. Surgical incisions in place OBJ DATA Labs 11/13/22 05:25 11/13/22 05:25 Labs: Abnormal Lab Results 11/13/22 11/13/22 11/11/22 05:25 05:25 14:00 WBC 13.6 H RBC 3.78 L Hgb 11.1 L Hct 34.3 L Immature Gran % (Auto) 2.4 H Neut % (Auto) 79.8 H Lymph % (Auto) 6.9 L Lymph # (Auto) 0.94 L [place] # (Auto) 1.36 H Immature Gran # 0.32 H Absolute Neutrophils 10.80 H Carbon Dioxide BUN Creatinine 1.3 H Glucose 208 H Hemoglobin A1c 8.0 H Calcium 8.1 L Alkaline Phosphatase Albumin Albumin/Globulin Ratio 11/11/22 11/11/22 14:00 14:00 WBC RBC 4.51 L Hgb 13.4 L Hct Immature Gran % (Auto) 5.2 H Neut % (Auto) Lymph % (Auto) 11.8 L Lymph # (Auto) 1.23 L [place] # (Auto) 1.15 H Immature Gran # 0.54 H Absolute Neutrophils Carbon Dioxide 21 L BUN 37 H Creatinine 1.3 H Glucose 164 H Hemoglobin A1c Calcium Alkaline Phosphatase 278 H Albumin 3.0 L Albumin/Globulin Ratio 0.8 L Meds: Medications Acetaminophen (Acetaminophen 325 Mg Tablet) 650 mg PO Q6HP PRN; Protocol PRN Reason: Per Pain Protocol/Fever > 101 Albuterol Sulfate (Albuterol Sulfate 60 Puff Inhaler) 3 puff INH QIDP PRN PRN Reason: Dyspnea Albuterol/Ipratropium (Ipratropium/Albuterol 3 Ml Ampul.Neb) 3 ml NEB Q4HP PRN PRN Reason: Shortness Of Breath Amlodipine Besylate (Amlodipine 10 Mg Tablet) 5 mg PO DAILY [facility] Last Admin: 11/13/22 09:23 Dose: 5 mg Aspirin (Aspirin 81 Mg Tab.Chew) 81 mg PO QDAY [facility] Last Admin: 11/13/22 09:23 Dose: 81 mg Atorvastatin Calcium (Atorvastatin 10 Mg Tablet) 10 mg PO QHS [facility] Last Admin: 11/12/22 21:07 Dose: 10 mg Cyanocobalamin (Cyanocobalamin (Vitamin B-12) 500 Mcg Tablet) 1,000 mcg PO QDAY [facility] Last Admin: 11/13/22 09:23 Dose: 1,000 mcg Dextrose (Dextrose 50% 50 Ml Vial) 0 ml IV UD PRN PRN Reason: Per Sliding Scale Diagnostic Test (Pha) (Accu-Chek 1 Each Strip) 1 each FS ACHS [facility] Last Admin: 11/13/22 11:44 Dose: 1 each Ferrous Sulfate (Ferrous Sulfate 325 Mg Tablet) 325 mg PO BID [facility] Last Admin: 11/13/22 09:25 Dose: 325 mg Gemfibrozil (Gemfibrozil 600 Mg Tablet) 600 mg PO BID [facility] Last Admin: 11/13/22 09:25 Dose: 600 mg Glucose (Dextrose 31 Gm Oral.Susp) 15 gm PO PRN PRN PRN Reason: Hypoglycemia Dextrose/Sodium Chloride (Dextrose 5%-1/2ns Iv Solution) 1,000 mls @ 75 mls/hr IV .[id number] [facility] Last Admin: 11/13/22 08:31 Dose: 75 mls/hr Piperacillin Sod/Tazobactam (Sod 3.375 gm/ Dextrose) 50 mls @ 100 mls/hr IV Q6H [facility]; Protocol Last Admin: 11/13/22 11:40 Dose: 100 mls/hr Ibuprofen (Ibuprofen 600 Mg Tablet) 600 mg PO QIDP PRN; Protocol PRN Reason: Per Pain Protocol/Fever > 101 Last Admin: 11/12/22 21:07 Dose: 600 mg Insulin Human Lispro (Insulin Lispro 1 Unit/0.01 Ml Unit) 0 unit SQ ACHS [facility]; Protocol Last Admin: 11/13/22 11:49 Dose: 6 unit Levothyroxine Sodium (Levothyroxine 75 Mcg Tablet) 75 mcg PO QAMAC [facility] Last Admin: 11/13/22 07:47 Dose: 75 mcg Levothyroxine Sodium (Levothyroxine 100 Mcg Tablet) 100 mcg PO ACB [facility] Last Admin: 11/13/22 07:47 Dose: 100 mcg Losartan Potassium (Losartan 50 Mg Tablet) 50 mg PO BID [facility] Last Admin: 11/13/22 09:25 Dose: 50 mg Metoprolol Succinate (Metoprolol Succinate 50 Mg Tab.Xl.24h) 50 mg PO QDAY [facility] Last Admin: 11/13/22 09:24 Dose: 50 mg Nitroglycerin (Nitroglycerin 0.4 Mg Tab.Subl) 0.4 mg SL Q5M PRN PRN Reason: chest pain Ondansetron HCl (Ondansetron 4 Mg/2 Ml Vial) 4 mg IV Q6HP PRN PRN Reason: Nausea And Vomiting Trospium 20 Mg (Tablet) 1 dose PO BID [facility] Last Admin: 11/13/22 09:26 Dose: 1 dose Tamsulosin HCl (Tamsulosin 0.4 Mg Capsule) 0.4 mg PO QDAY [facility] Last Admin: 11/13/22 09:24 Dose: 0.4 mg Tiotropium [place] (Tiotropium [place] 18 Mcg Inhalant) 18 mcg INH QDAY [facility] Last Admin: 11/13/22 11:10 Dose: 1 dose Vitamin D (Vitamin D3 25 Mcg Tablet) 50 mcg PO DAILY [facility] Last Admin: 11/13/22 09:25 Dose: 50 mcg A/P Assessment and plan (1) Acute cholecystitis: Status: Acute (2) OAB (overactive bladder): Status: Acute (3) BPH w urinary obs/LUTS: Status: Acute (4) Hypothyroidism: Status: Chronic (5) Hypothyroidism, acquired: Status: Acute (6) Hyperlipemia: Status: Chronic (7) Diabetes mellitus, type II: Status: Chronic (8) Chronic obstructive pulmonary disease: Status: Chronic (9) Essential hypertension: Status: Acute Narrative A/P Narrative: Assessment and Plans: 1. Acute cholecystitis with possible cholelithiasis: Surgical management as per primary team Dr. Knight Tentative surgery date today for cholecystectomy, laparoscopic vs open Zosyn D5 1/2NS@75cc/hr 2. T2DM: HgA1c 8.0 Hold oral hypoglycemics Increase Insulin Lispro SSI from medium to high scale AC HS for better glycemic coverage Accu Check AC HS Hypoglycemia protocol CC diet 3. COPD, stable: Currently tolerating room air DuoNEB Spiriva 4. Essential Hypertension: Amlodipine Losartan Metoprolol ER 5. Hyperlipidemia: Gemfibrozil Lipitor 6. Hypothyroidism: Continue thyroid replacement therapy 7. BPH with overactive bladder: Flomax Tolterodine Thank you for the consultation, will continue to follow. Time Spent With Patient Time: Total time spent is greater than 50% in coordination of care (as documented) at patient's floor/unit and/or counseling patient: Subsequent: Total time with patient: 35 - 49 minutes QUALITY Stroke Symptom Onset Unknown: No VTE Deep Vein Thrombosis/Pulmonary Embolism Present on Admission: No
[2022-11-13] MEDS: IBUPROFEN 600 MG TABLET PO PRN ×2 (15:11→20:39)
[2022-11-13] MEDS: ATORVASTATIN 10 MG TABLET PO SCH (20:39)
[2022-11-14] MEDS: PIPERACILLIN SODIUM/TAZOBACTAM 3.375 GM in DEXTROSE 5% IN WATER 50 ML IV SCH (05:45)
[2022-11-14] MEDS: LEVOTHYROXINE 100 MCG TABLET PO SCH (07:37)
[2022-11-14] MEDS: LEVOTHYROXINE 75 MCG TABLET PO SCH (07:38)
--- NOTE | 2022-11-14 07:38 | Discharge Summary ---
Discharge Provider Provider IMPORTANT FOLLOW-UP INFORMATION FOR PCP: Patient information: Note initiated : 11/14/22 at 7:37 am Service Date, if different from initiated Date: [] Patient: Kehinde Cullen 87 y/o M admitted on 11/11/22 for gallbladder issue. Chief Complaint: [] Date of admission: 11/11/22 17:55 Discharge date: 11/14/22 Primary care physician: Frank Graham MD Consults: 11/11/22 Consult to Physician [CONS] Stat Comment: Consulting Provider: Kamron Knight Reason For Exam: Physician to Consult 11/11/22 16:18 Consult to Physician [CONS] Routine Comment: Assist with medical managment Consulting Provider: Farhad Mustafa Reason For Exam: Physician to Consult COURSE Hospital Course Hospital course: Patient is admitted with acute cholecystitis, underwent a robotic assisted partial cholecystectomy. Has done well postop, is tolerating regular diet, afebrile and is ambulatory. Discharge diagnosis: Status postcholecystectomy Time Spent with Patient Time attestation: Total time spent providing and/or coordinating discharge services: Time spent: Less than 30 minutes Physical Examination Vital Signs Vital signs: Temp Pulse Resp BP Pulse Ox O2 Del Method O2 Flow Rate 97 F 77 20 146/78 93 Room Air 1 11/14/22 05:47 11/14/22 03:43 11/14/22 03:43 11/14/22 03:43 11/14/22 03:43 11/14/22 03:43 11/13/22 08:00 Discharge Plan Patient/Caregiver Discharge Instructions Activity: increase activity as tolerated Diet: Regular Diet Activity Restrictions/Additional Instructions: Resume normal activity as tolerated, no weightlifting restrictions. May resume showering starting tonight. Follow-up with me in 2 to 3 weeks. Prescriptions: New acetaminophen [Tylenol 8 Hour] 650 mg tablet extended release 650 mg PO Q8H PRN (Reason: pain) Qty: 90 0RF ibuprofen 600 mg tablet 600 mg PO Q6H PRN (Reason: pain) Qty: 90 0RF oxycodone 5 mg tablet 5 mg PO Q6H PRN (Reason: pain) Qty: 5 0RF Continued nitroglycerin [Nitrostat] 0.4 mg tablet, sublingual 0.4 mg SUBLINGUAL Q5-15M PRN (Reason: chest pain) Qty: 10 0RF Rx Instructions: until response; do not exceed 3 doses per episode (DME) lancets [Accu-Chek Softclix Lancets] Misc See Rx Instructions .ROUTE .MEDSUPPLY Qty: 150 5RF Rx Instructions: As directed (DME) blood sugar diagnostic [Accu-Chek Brunilda Plus test strp] Strip See Rx Instructions .ROUTE .MEDSUPPLY Qty: 90 5RF Rx Instructions: check blood sugar once daily (DME) Depend Underwear For Men Abbie- Misc See Rx Instructions .ROUTE .MEDSUPPLY Qty: 76 5RF Rx Instructions: As directed atorvastatin 10 mg tablet 10 mg tablet 10 mg PO QHS Qty: 90 1RF losartan [Cozaar] 50 mg tablet 50 mg PO BID Qty: 180 1RF tamsulosin 0.4 mg capsule 0.4 mg PO QDAY Qty: 30 6RF gemfibrozil [Lopid] 600 mg tablet 600 mg PO BID Qty: 180 1RF alogliptin 12.5 mg tablet 12.5 mg PO QAM Qty: 90 1RF Jardiance 10 mg tablet 10 mg PO QDAY Qty: 90 1RF levothyroxine 175 mcg tablet 175 mcg PO QDAY Qty: 90 1RF metformin 850 mg tablet 850 mg PO TID Qty: 270 3RF Patient Comments: for 90 days Rx Instructions: Going back to TID dosing aspirin 81 mg tablet,delayed release (DR/EC) 81 mg PO QDAY cyanocobalamin (vitamin B-12) 1,000 mcg tablet 1,000 mcg PO QDAY (DME) blood-glucose meter [Blood Glucose Monitoring] Kit See Rx Instructions .ROUTE .MEDSUPPLY Qty: 1 0RF Rx Instructions: Use to test BG QD - BID tiotropium bromide 18 mcg capsule, w/inhalation device See Dose Instructions INHALATION QDAY Qty: 90 2RF Dose Instruction: 1 cap (18 mcg) INHALATION QDAY Patient Comments: for 90 days Rx Instructions: 1 cap (18 mcg) INHALATION QDAY ferrous sulfate [Feosol] 325 mg (65 mg iron) tablet 325 mg PO BID trospium 20 mg tablet 20 mg PO BID amlodipine 10 mg tablet 5 mg PO DAILY Spiriva with HandiHaler 18 mcg capsule, w/inhalation device 1 cap INHALATION DAILY metoprolol succinate 50 mg tablet extended release 24 hr 50 mg PO QDAY Patient Comments: for 90 days triamcinolone acetonide 1 DOSE cream 1 dose topical BID Rx Instructions: use twice per day for rash albuterol sulfate 90 mcg/actuation HFA aerosol inhaler 3 puff INHALATION QID PRN (Reason: Dyspnea) Rx Instructions: administer with spacer cholecalciferol (vitamin D3) 4,000 unit capsule 2,000 unit PO QDAY tolterodine 4 mg Capsule,Extended Release 24hr 4 mg PO QDAY Follow Up Plan Follow up with: Frank Graham MD [Primary Care Provider] - Patient Disposition: Home, Self-Care Discharge Orders: Discharge Order (Routine); Ordered 11/14/22 Ordered By: Kamron Knight Pending Pending Pending: Resuscitation Status Resuscitate (Full Code) Diet Consistent Carbohydrate Diet Start FriNov 131 Acetaminophen (Acetaminophen 325 Mg Tablet) 650 mg PO Q6HP PRN; Protocol PRN Reason: Per Pain Protocol/Fever > 101 Last Admin: 11/13/22 19:45 Dose: 650 mg Documented By: LITA Amlodipine Besylate (Amlodipine 10 Mg Tablet) 5 mg PO DAILY [facility] Last Admin: 11/13/22 09:23 Dose: 5 mg Documented By: Co-signed By: Aspirin (Aspirin 81 Mg Tab.Chew) 81 mg PO QDAY [facility] Last Admin: 11/13/22 09:23 Dose: 81 mg Documented By: Co-signed By: Atorvastatin Calcium (Atorvastatin 10 Mg Tablet) 10 mg PO QHS [facility] Last Admin: 11/13/22 20:39 Dose: 10 mg Documented By: Admin: 11/12/22 21:07 Dose: 10 mg Documented By: LITA Cyanocobalamin (Cyanocobalamin (Vitamin B-12) 500 Mcg Tablet) 1,000 mcg PO QDAY [facility] Last Admin: 11/13/22 09:23 Dose: 1,000 mcg Documented By: Co-signed By: Diagnostic Test (Pha) (Accu-Chek 1 Each Strip) 1 each FS ACHS [facility] Last Admin: 11/13/22 20:39 Dose: 1 each Documented By: Admin: 11/13/22 16:42 Dose: 1 each Documented By: Co-signed By: Admin: 11/13/22 11:44 Dose: 1 each Documented By: Admin: 11/13/22 07:36 Dose: 1 each Documented By: Co-signed By: Admin: 11/12/22 22:10 Dose: Not Given Documented By: Admin: 11/12/22 21:06 Dose: 1 each Documented By: Admin: 11/12/22 11:52 Dose: 1 each Documented By: Admin: 11/12/22 08:02 Dose: 1 each Documented By: Admin: 11/11/22 21:11 Dose: Not Given Documented By: Admin: 11/11/22 20:09 Dose: 1 each Documented By: RIKI Ferrous Sulfate (Ferrous Sulfate 325 Mg Tablet) 325 mg PO BID [facility] Last Admin: 11/13/22 20:39 Dose: 325 mg Documented By: Admin: 11/13/22 09:25 Dose: 325 mg Documented By: Co-signed By: Admin: 11/12/22 21:07 Dose: 325 mg Documented By: LITA Gemfibrozil (Gemfibrozil 600 Mg Tablet) 600 mg PO BID [facility] Last Admin: 11/13/22 20:39 Dose: 600 mg Documented By: Admin: 11/13/22 09:25 Dose: 600 mg Documented By: Co-signed By: Admin: 11/12/22 21:07 Dose: 600 mg Documented By: LITA Dextrose/Sodium Chloride (Dextrose 5%-1/2ns Iv Solution) 1,000 mls @ 75 mls/hr IV .[id number] [facility] Last Admin: 11/13/22 22:06 Dose: 75 mls/hr Documented By: Admin: 11/13/22 21:52 Dose: Not Given Documented By: Infusion: 11/13/22 21:51 Dose: 75 mls/hr Documented By: Admin: 11/13/22 08:31 Dose: 75 mls/hr Documented By: Infusion: 11/13/22 08:30 Dose: 0 mls/hr Documented By: Admin: 11/12/22 22:10 Dose: Not Given Documented By: Admin: 11/12/22 11:49 Dose: 75 mls/hr Documented By: Infusion: 11/12/22 09:18 Dose: 75 mls/hr Documented By: Admin: 11/12/22 08:03 Dose: Not Given Documented By: Admin: 11/11/22 19:58 Dose: 75 mls/hr Documented By: RIKI Piperacillin Sod/Tazobactam (Sod 3.375 gm/ Dextrose) 50 mls @ 100 mls/hr IV Q6H [facility]; Protocol Last Admin: 11/14/22 05:45 Dose: 100 mls/hr Documented By: Infusion: 11/14/22 03:29 Dose: 0 mls/hr Documented By: Admin: 11/13/22 23:17 Dose: 100 mls/hr Documented By: Infusion: 11/13/22 17:56 Dose: 0 mls/hr Documented By: Admin: 11/13/22 17:28 Dose: 100 mls/hr Documented By: Infusion: 11/13/22 12:15 Dose: 0 mls/hr Documented By: Admin: 11/13/22 11:40 Dose: 100 mls/hr Documented By: Infusion: 11/13/22 07:01 Dose: 0 mls/hr Documented By: Admin: 11/13/22 05:39 Dose: 100 mls/hr Documented By: Infusion: 11/13/22 01:24 Dose: 0 mls/hr Documented By: Admin: 11/13/22 00:51 Dose: 100 mls/hr Documented By: Infusion: 11/12/22 21:07 Dose: 0 mls/hr Documented By: Admin: 11/12/22 19:57 Dose: 100 mls/hr Documented By: Infusion: 11/12/22 12:30 Dose: 0 mls/hr Documented By: Admin: 11/12/22 11:49 Dose: 100 mls/hr Documented By: Infusion: 11/12/22 05:53 Dose: 100 mls/hr Documented By: Admin: 11/12/22 05:23 Dose: 100 mls/hr Documented By: Infusion: 11/12/22 00:38 Dose: 0 mls/hr Documented By: Admin: 11/11/22 23:57 Dose: 100 mls/hr Documented By: Infusion: 11/11/22 21:11 Dose: 0 mls/hr Documented By: Admin: 11/11/22 19:58 Dose: 100 mls/hr Documented By: RIKI Ibuprofen (Ibuprofen 600 Mg Tablet) 600 mg PO QIDP PRN; Protocol PRN Reason: Per Pain Protocol/Fever > 101 Last Admin: 11/13/22 20:39 Dose: 600 mg Documented By: Admin: 11/13/22 15:11 Dose: 600 mg Documented By: Admin: 11/12/22 21:07 Dose: 600 mg Documented By: LITA Insulin Human Lispro (Insulin Lispro 1 Unit/0.01 Ml Unit) 0 unit SQ ACHS [facility]; Protocol Last Admin: 11/13/22 20:39 Dose: 6 unit Documented By: Admin: 11/13/22 17:28 Dose: 9 unit Documented By: Admin: 11/13/22 11:49 Dose: 6 unit Documented By: HANANE Levothyroxine Sodium (Levothyroxine 75 Mcg Tablet) 75 mcg PO QAMAC [facility] Last Admin: 11/13/22 07:47 Dose: 75 mcg Documented By: Co-signed By: Levothyroxine Sodium (Levothyroxine 100 Mcg Tablet) 100 mcg PO ACB [facility] Last Admin: 11/13/22 07:47 Dose: 100 mcg Documented By: Co-signed By: Losartan Potassium (Losartan 50 Mg Tablet) 50 mg PO BID [facility] Last Admin: 11/13/22 20:39 Dose: 50 mg Documented By: Admin: 11/13/22 09:25 Dose: 50 mg Documented By: Co-signed By: Admin: 11/12/22 21:07 Dose: 50 mg Documented By: LITA Metoprolol Succinate (Metoprolol Succinate 50 Mg Tab.Xl.24h) 50 mg PO QDAY [facility] Last Admin: 11/13/22 09:24 Dose: 50 mg Documented By: Co-signed By: Trospium 20 Mg (Tablet) 1 dose PO BID [facility] Last Admin: 11/13/22 20:44 Dose: 1 dose Documented By: Admin: 11/13/22 09:26 Dose: 1 dose Documented By: Co-signed By: Admin: 11/12/22 21:07 Dose: 1 dose Documented By: LITA Tamsulosin HCl (Tamsulosin 0.4 Mg Capsule) 0.4 mg PO QDAY [facility] Last Admin: 11/13/22 09:24 Dose: 0.4 mg Documented By: Co-signed By: Tiotropium [place] (Tiotropium [place] 18 Mcg Inhalant) 18 mcg INH QDAY [facility] Last Admin: 11/13/22 11:10 Dose: 1 dose Documented By: HANANE Vitamin D (Vitamin D3 25 Mcg Tablet) 50 mcg PO DAILY [facility] Last Admin: 11/13/22 09:25 Dose: 50 mcg Documented By: Co-signed By: Shift Summary 11/14/22 04:08 Shift Summary by Mahogany Garibay Primary Diagnosis: Cholecystitis Registration Status: IP Date of Surgery (if applicable): 11/[address] Knight Pertinent Medical Dx/Issue(s): DM2, COPD, HTN, BPH, Lung CA with partial lobe resection, bladder CA Med management (antibiotics, diuretics, BP): Zosyn, D5 1/2 NS at 75 mL/Hr. Skin/Wound Care: x3 lapsites transversely across abdomen approximated with dermabond, slightly raised, CDI. RUQ RENUKA Vital Signs with Trends: VSS on RA O2, liter flow/saturations: RA Pain management (acute vs. chronic): ibuprofen x1. APAP x1 Lab/Rad (abnormals, trends): WBC up to 13.6, other labs unremarkable. Neuro/Mental Status: A/Ox4 Urinary Elimination Device: Urinal/Incont. Urinary output greater than 30mL/hr? yes Date of last BM: Unknown Lines/Tubes: 20g LFA - D5 1/2 NS @ 75, RENUKA drain - serosanguinous drainage, total output of 130mL at the time of this note. Activity: SBA with FWW, GB. Walked x2 this shift Recommendations/questions for MD: None at this time. Discharge Plan (needs, disposition, etc): TBD Initialized on 11/14/22 04:08 - END OF NOTE
[2022-11-14] MEDS: TAMSULOSIN 0.4 MG CAPSULE PO SCH (09:58)
[2022-11-14] MEDS: amLODIPine 10 MG TABLET PO SCH (09:58)
[2022-11-14] MEDS: ASPIRIN 81 MG TAB.CHEW PO SCH (09:58)
[2022-11-14] MEDS: INSULIN LISPRO 1 UNIT/0.01 ML UNIT SQ SCH (09:58)
[2022-11-14] MEDS: METOPROLOL SUCCINATE 50 MG TAB.XL.24H PO SCH (09:59)
[2022-11-14] MEDS: TIOTROPIUM BROMIDE 18 MCG INHALANT INH SCH (09:59)
[2022-11-14] MEDS: Trospium 20 mg tablet PO SCH (09:59)
[2022-11-14] MEDS: FERROUS SULFATE 325 MG TABLET PO SCH (09:59)
[2022-11-14] MEDS: LOSARTAN 50 MG TABLET PO SCH (09:59)
[2022-11-14] MEDS: GEMFIBROZIL 600 MG TABLET PO SCH (10:00)
[2022-11-14] MEDS: VITAMIN D3 25 MCG TABLET PO SCH (10:32)
[2022-11-14] MEDS: CYANOCOBALAMIN (VITAMIN B-12) 500 MCG TABLET PO SCH (10:32)
--- NOTE | 2022-11-14 10:42 | Internal Med Progress Note ---
SUBJECTIVE Subjective Patient information: Note initiated : 11/14/22 at 10:39 am Service Date, if different from initiated Date: [] Patient: Kehinde Cullen 87 y/o M admitted on 11/11/22 for gallbladder issue. Chief Complaint: [] Interval history: Patient is a 87-year-old gentleman history of squamous cell carcinoma of the left lung, bladder cancer, type 2 diabetes mellitus, COPD, essential hypertension, dyslipidemia, hypothyroidism, BPH, presenting with chief complaint of abdominal pain. CT of the abdomen and pelvis as well as ultrasound of the abdomen showing acute cholecystitis with possible cholelithiasis. General surgeons Dr. Knight consulted for surgical management with possible cholecystectomy on Friday. I was asked to comanage the concurrent medical issues. 11/12: Afebrile overnight. All cultures no growth today. Fasting glucose 228. Patient denies any abdominal pain or nausea or vomiting at the moment. Dr. Knight decided to proceed with the surgery today and patient has been n.p.o. since midnight. We will continue antibiotics coverage for the time being as well as sliding scale insulin. Will resume diet after the surgery when okay by Dr. Knight. 11/13: s/p lap cholecystectomy by Dr. Knight on 11/12. Fasting glucose 305. Blood pressure well controlled. Increase Insulin Lispro SSI from medium to high scale AC HS for better glycemic coverage. Continue oral antihypertensives for blood pressure control. Rest of the post-operative management as per primary team. 11/14: Fasting glucose 194 this morning. Afebrile overnight. Blood pressure well controlled. Continue high scale Insulin Lispro SSI AC HS. Continue oral antihypertensives for blood pressure control. Rest of the post-operative management as per primary team. Constitutional Vitals: Vital Signs Temp Pulse Resp BP Pulse Ox O2 Del Method O2 Flow Rate 36.1 C 77 20 146/78 93 Room Air 1 11/14/22 05:47 11/14/22 03:43 11/14/22 03:43 11/14/22 03:43 11/14/22 03:43 11/14/22 03:43 11/13/22 08:00 Period Temp Pulse Resp BP Sys/[place] Pulse Ox O2 Del Method O2 Flow Rate Last 24 Hr 35.6 C-36.6 C 76-93 19-24 121-146/67-95 90-93 Room Air-Room Air Intake and Output 11/13/22 11/14/22 11/14/22 19:59 03:59 11:59 Intake Total 520 1650 50 Output Total 117 357 Balance 403 1293 50 Weight 94.438 kg Intake & Output: Intake & Output 11/13/22 11/14/22 11/14/22 19:59 03:59 11:59 Intake Total 520 1650 50 Output Total 117 357 Balance 403 1293 50 Weight 94.438 kg Intake: IV 100 1050 50 Dextrose 5%-1/2Ns IV Solution 1 1000 ,000 ml @ 75 mls/hr IV .[id number] [facility] Rx#:[id number] Zosyn 3.375 gm In Dextrose 5% 100 50 50 in Water 50 ml @ 100 mls/hr IV Q6H [facility] Rx#:[id number] Oral 420 600 Output: Drainage 115 80 Right Lower Abdomen RENUKA Drain 115 80 Void Amount 275 # of times incontinent of urine 2 2 Other: Meal Dinner Percent of Meal Consumed 100% Feeding Ability Assist with Tray Set Up Urine Appearance Clear Urine Color Yellow Urine Odor Normal # Voids 1 Head Head exam: Present atraumatic and normal inspection Eye Eye exam: Present normal appearance ENT ENT exam: Present mucous membranes moist, normal exam and normal external ear exam Neck Neck exam: Present normal inspection Respiratory Respiratory exam: Present normal respiratory exam Cardiovascular Cardiovascular exam: Present normal rate and rhythm GI/Abdominal GI/Abdominal exam: Present normal bowel sounds Additional comments: RENUKA drain right upper quadrants. Surgical incisions in place Back Exam Back exam: Present normal inspection Neurological Exam Neurological exam: Present alert and oriented X3 Skin Skin exam: Present intact and warm OBJ DATA Labs 11/13/22 05:25 11/13/22 05:25 Labs: Abnormal Lab Results 11/13/22 11/13/22 11/11/22 05:25 05:25 14:00 WBC 13.6 H RBC 3.78 L Hgb 11.1 L Hct 34.3 L Immature Gran % (Auto) 2.4 H Neut % (Auto) 79.8 H Lymph % (Auto) 6.9 L Lymph # (Auto) 0.94 L [place] # (Auto) 1.36 H Immature Gran # 0.32 H Absolute Neutrophils 10.80 H Carbon Dioxide BUN Creatinine 1.3 H Glucose 208 H Hemoglobin A1c 8.0 H Calcium 8.1 L Alkaline Phosphatase Albumin Albumin/Globulin Ratio 11/11/22 11/11/22 14:00 14:00 WBC RBC 4.51 L Hgb 13.4 L Hct Immature Gran % (Auto) 5.2 H Neut % (Auto) Lymph % (Auto) 11.8 L Lymph # (Auto) 1.23 L [place] # (Auto) 1.15 H Immature Gran # 0.54 H Absolute Neutrophils Carbon Dioxide 21 L BUN 37 H Creatinine 1.3 H Glucose 164 H Hemoglobin A1c Calcium Alkaline Phosphatase 278 H Albumin 3.0 L Albumin/Globulin Ratio 0.8 L Meds: Medications Acetaminophen (Acetaminophen 325 Mg Tablet) 650 mg PO Q6HP PRN; Protocol PRN Reason: Per Pain Protocol/Fever > 101 Last Admin: 11/13/22 19:45 Dose: 650 mg Albuterol Sulfate (Albuterol Sulfate 60 Puff Inhaler) 3 puff INH QIDP PRN PRN Reason: Dyspnea Albuterol/Ipratropium (Ipratropium/Albuterol 3 Ml Ampul.Neb) 3 ml NEB Q4HP PRN PRN Reason: Shortness Of Breath Amlodipine Besylate (Amlodipine 10 Mg Tablet) 5 mg PO DAILY [facility] Last Admin: 11/14/22 09:58 Dose: 5 mg Aspirin (Aspirin 81 Mg Tab.Chew) 81 mg PO QDAY [facility] Last Admin: 11/14/22 09:58 Dose: 81 mg Atorvastatin Calcium (Atorvastatin 10 Mg Tablet) 10 mg PO QHS [facility] Last Admin: 11/13/22 20:39 Dose: 10 mg Cyanocobalamin (Cyanocobalamin (Vitamin B-12) 500 Mcg Tablet) 1,000 mcg PO QDAY [facility] Last Admin: 11/14/22 10:32 Dose: Not Given Dextrose (Dextrose 50% 50 Ml Vial) 0 ml IV UD PRN PRN Reason: Per Sliding Scale Diagnostic Test (Pha) (Accu-Chek 1 Each Strip) 1 each FS ACHS [facility] Last Admin: 11/14/22 09:57 Dose: 1 each Ferrous Sulfate (Ferrous Sulfate 325 Mg Tablet) 325 mg PO BID [facility] Last Admin: 11/14/22 09:59 Dose: 325 mg Gemfibrozil (Gemfibrozil 600 Mg Tablet) 600 mg PO BID [facility] Last Admin: 11/14/22 10:00 Dose: 600 mg Glucose (Dextrose 31 Gm Oral.Susp) 15 gm PO PRN PRN PRN Reason: Hypoglycemia Dextrose/Sodium Chloride (Dextrose 5%-1/2ns Iv Solution) 1,000 mls @ 75 mls/hr IV .[id number] [facility] Last Admin: 11/13/22 22:06 Dose: 75 mls/hr Piperacillin Sod/Tazobactam (Sod 3.375 gm/ Dextrose) 50 mls @ 100 mls/hr IV Q6H [facility]; Protocol Last Infusion: 11/14/22 06:15 Dose: Infused Ibuprofen (Ibuprofen 600 Mg Tablet) 600 mg PO QIDP PRN; Protocol PRN Reason: Per Pain Protocol/Fever > 101 Last Admin: 11/13/22 20:39 Dose: 600 mg Insulin Human Lispro (Insulin Lispro 1 Unit/0.01 Ml Unit) 0 unit SQ ACHS [facility]; Protocol Last Admin: 11/14/22 09:58 Dose: 6 unit Levothyroxine Sodium (Levothyroxine 75 Mcg Tablet) 75 mcg PO QAMAC [facility] Last Admin: 11/14/22 07:38 Dose: 75 mcg Levothyroxine Sodium (Levothyroxine 100 Mcg Tablet) 100 mcg PO ACB [facility] Last Admin: 11/14/22 07:37 Dose: 100 mcg Losartan Potassium (Losartan 50 Mg Tablet) 50 mg PO BID [facility] Last Admin: 11/14/22 09:59 Dose: 50 mg Metoprolol Succinate (Metoprolol Succinate 50 Mg Tab.Xl.24h) 50 mg PO QDAY [facility] Last Admin: 11/14/22 09:59 Dose: 50 mg Nitroglycerin (Nitroglycerin 0.4 Mg Tab.Subl) 0.4 mg SL Q5M PRN PRN Reason: chest pain Ondansetron HCl (Ondansetron 4 Mg/2 Ml Vial) 4 mg IV Q6HP PRN PRN Reason: Nausea And Vomiting Trospium 20 Mg (Tablet) 1 dose PO BID [facility] Last Admin: 11/14/22 09:59 Dose: 1 dose Tamsulosin HCl (Tamsulosin 0.4 Mg Capsule) 0.4 mg PO QDAY [facility] Last Admin: 11/14/22 09:58 Dose: 0.4 mg Tiotropium Harbinger (Tiotropium Harbinger 18 Mcg Inhalant) 18 mcg INH QDAY [facility] Last Admin: 11/14/22 09:59 Dose: 1 dose Vitamin D (Vitamin D3 25 Mcg Tablet) 50 mcg PO DAILY [facility] Last Admin: 11/14/22 10:32 Dose: Not Given A/P Assessment and plan (1) Acute cholecystitis: Status: Acute (2) OAB (overactive bladder): Status: Acute (3) BPH w urinary obs/LUTS: Status: Acute (4) Hypothyroidism: Status: Chronic (5) Hypothyroidism, acquired: Status: Acute (6) Hyperlipemia: Status: Chronic (7) Diabetes mellitus, type II: Status: Chronic (8) Chronic obstructive pulmonary disease: Status: Chronic (9) Essential hypertension: Status: Acute Narrative A/P Narrative: Assessment and Plans: 1. Acute cholecystitis with possible cholelithiasis: s/p cholecystectomy by Dr. Knight 11/12 Post-Surgical management as per primary team Dr. Eugene Kathleen D5 1/2NS@75cc/hr 2. T2DM: HgA1c 8.0 Hold oral hypoglycemics High scale Insulin Lispro SSI AC HS Accu Check AC HS Hypoglycemia protocol CC diet 3. COPD, stable: Currently tolerating room air DuoNEB Spiriva 4. Essential Hypertension: Amlodipine Losartan Metoprolol ER 5. Hyperlipidemia: Gemfibrozil Lipitor 6. Hypothyroidism: Continue thyroid replacement therapy 7. BPH with overactive bladder: Flomax Tolterodine Thank you for the consultation Time Spent With Patient Time: Total time spent is greater than 50% in coordination of care (as documented) at patient's floor/unit and/or counseling patient: Subsequent: Total time with patient: 35 - 49 minutes QUALITY Stroke Symptom Onset Unknown: No VTE Deep Vein Thrombosis/Pulmonary Embolism Present on Admission: No
== END 2022-11-14 10:00 | disposition home or self-care (01) | DRG 418 ==
LOC: ED 12:54 → MEDSUR 17:55
PROVIDERS: ADMIT Surgery; ATTEND Surgery